=== PATIENT | female | born 1980 | race African-American/Black ===

== ENCOUNTER → 2017-09-12 | Outpatient (CLI) | payer OTHER ==
--- NOTE | 2017-09-16 07:39 | MM ---
Reason for exam: screening (asymptomatic). Last mammogram was performed 2 years and 8 months ago. History: Patient is postmenopausal. Family history of breast cancer in mother at age 42. Physical Findings: A clinical breast exam by your physician is recommended on an annual basis and results should be correlated with mammographic findings. MG 3D Screening Mammo W/Cad Bilateral CC and MLO view(s) were taken. Prior study comparison: January 14, 2015, bilateral MG screening mammo w CAD. There are scattered fibroglandular densities. No significant changes when compared with prior studies. ASSESSMENT: Negative, BI-RAD 1 RECOMMENDATION: Routine screening mammogram of both breasts at age 42.
== END | disposition home or self-care (01) ==
LOC: RADMAMWWP 07:36
PROVIDERS: ATTEND Family Medicine
DX: Z12.31 Encounter for screening mammogram for malignant neoplasm of breast (principal); Z80.3 Family history of malignant neoplasm of breast
CPT/HCPCS: 77063; 77067

== ENCOUNTER 2019-11-20 10:42 | Emergency (ER) | payer OTHER ==
[2019-11-20 10:56] VITALS: BP 148/89; PULSE 77; RESP 18; TEMP 98.3
[2019-11-20] MEDS ORDERED: MORPHINE SULFATE 4 MG/ML SYRINGE IM STA (11:10)
--- NOTE | 2019-11-20 11:30 | XR ---
Left foot and left ankle HISTORY: Trauma and pain 3 views of the left ankle and 3 views of the left foot are submitted Soft tissue swelling is present. Alignment, joint spaces, bone mineralization are maintained. IMPRESSION: No fracture or dislocation.
[2019-11-20] MEDS ORDERED: ACET/COD 300 MG/30 MG STARTER PACK 6 TAB BTL PO STA (11:38)
--- NOTE | 2019-11-20 11:38 | ED ---
Lower Extremity Injury HPI - General Chief Complaint: Extremity Injury, Lower Stated Complaint: Ankle injury Time Seen by Provider: 11/20/19 10:57 Source: patient, family, RN notes reviewed Mode of arrival: wheelchair Limitations: no limitations - History of Present Illness Initial Comments: 39-year-old female presents emergency from chief complaint left ankle pain. Patient states that she is walking her dog, tripped and fell twisting her left ankle. She has pain the lateral portion of left ankle and foot she has an abrasion to her right knee she states her tetanus is up-to-date. Denies any head injury no loss conscious. Patient offers no other complaints. - Related Data Previous Rx's Medication Instructions Recorded Acetaminophen-Codeine 300-30mg 2 tab PO Q6H PRN #20 tablet 11/26/14 [Tylenol #3] Allergies Allergy/AdvReac Type Severity Reaction Status Date / Time No Known Allergies Allergy Verified 11/24/14 08:49 Review of Systems ROS Statement: Those systems with pertinent positive or pertinent negative responses have been documented in the HPI. ROS Other: All systems not noted in ROS Statement are negative. Past Medical History Past Medical History: No Reported History History of Any Multi-Drug Resistant Organisms: None Reported Past Surgical History: Tubal Ligation, Uterine Ablation Past Psychological History: No Psychological Hx Reported Smoking Status: Never smoker Past Alcohol Use History: None Reported General Exam Limitations: no limitations General appearance: alert, in no apparent distress Head exam: Present: atraumatic, normocephalic, normal inspection Eye exam: Present: normal appearance, PERRL, EOMI. Absent: scleral icterus, conjunctival injection, periorbital swelling Respiratory exam: Present: normal lung sounds bilaterally. Absent: respiratory distress, wheezes, rales, rhonchi, stridor Cardiovascular Exam: Present: regular rate, normal rhythm, normal heart sounds. Absent: systolic murmur, diastolic murmur, rubs, gallop, clicks Extremities exam: Present: other (Left ankle there is mild swelling noted over the lateral malleoli region, tenderness palpation, tenderness the lateral portion of the foot neurovascular intact there is no proximal tib-fib tenderness. Abrasion noted the right knee with no tenderness full range of motion remaining extremity exam within normal limits.) Course Vital Signs 11/20/19 10:53 Temperature 98.3 F Pulse Rate 77 Respiratory 18 Rate Blood Pressure 148/89 O2 Sat by Pulse 100 Oximetry Medical Decision Making - Medical Decision Making X-rays reviewed of the left ankle and foot there are no acute fractures as read by radiologist. Patient was placed in a stirrup Aircast. Patient will follow- up with orthopedics if no improvement. Disposition Clinical Impression: Left ankle sprain, Sprain of left foot Disposition: HOME SELF-CARE Condition: Stable Instructions (If sedation given, give patient instructions): Ankle Sprain (ED), Foot Sprain (ED) Additional Instructions: Please return to the Emergency Department if symptoms worsen or any other concerns. Is patient prescribed a controlled substance at d/c from ED?: No Referrals: Andrea De La Cruz MD [Primary Care Provider] - 1-2 days Time of Disposition: 11:37
== END 2019-11-20 11:56 | disposition home or self-care (01) ==
LOC: EC 10:42
DX: S93.402A Sprain of unspecified ligament of left ankle, initial encounter (principal); S93.602A Unspecified sprain of left foot, initial encounter; S80.211A Abrasion, right knee, initial encounter; W01.0XXA Fall on same level from slipping, tripping and stumbling without subsequent striking against object, initial encounter; Y93.K1 Activity, walking an animal
CPT/HCPCS: 73610; 73630; 99283; 29515; 96372; L4350; J2270

== ENCOUNTER 2020-04-17 13:49 | Emergency (ER) | payer OTHER ==
[2020-04-17 13:58] VITALS: BP 148/65; PULSE 85; RESP 18; TEMP 98.9
[2020-04-17] MEDS ORDERED: BACITRACIN OINT 1 EACH PACKET TOPICAL ONE (14:25)
[2020-04-17] MEDS ORDERED: IBUPROFEN 600 MG STARTER PACK 4 TAB BTL PO STA (14:26)
[2020-04-17] MEDS ORDERED: ACET/COD 300 MG/30 MG STARTER PACK 6 TAB BTL PO STA (14:26)
--- NOTE | 2020-04-17 15:02 | ED ---
General Adult HPI - General Chief complaint: Burn/Smoke Inhalation Stated complaint: R Hand Burn Time Seen by Provider: 04/17/20 14:11 Source: patient, RN notes reviewed, old records reviewed Mode of arrival: ambulatory Limitations: no limitations - History of Present Illness Initial comments: 40-year-old female patient to ED for evaluation of burn to her left hand. Patient reports that she was cooking with grease when some grease splattered on the dorsal aspect of the second and third digits. Declined to update her tetanus. Denies any other acute complaints. Denies any chance of . Systemic: Pt denies fatigue, fever/chills, rash. Pt denies weakness, night sweats, weight loss. Neuro: Pt denies headache, visual disturbances, syncope or pre-syncope. HEENT: Pt denies ocular discharge or irritation, otalgia, rhinorrhea, pharyngitis or notable lymphadenopathy. Cardiopulmonary: Pt denies chest pain, SOB, heart palpitations, dyspnea on exertion. Abdominal/GI: Pt denies abdominal pain, n/v/d. : Pt denies dysuria, burning w/ urination, frequency/urgency. Denies new onset urinary or bowel incontinence. MSK: Pt denies myalgia, loss of strength or function in extremities. Neuro: Pt denies new onset weakness, paresthesias. - Related Data Previous Rx's Medication Instructions Recorded Acetaminophen-Codeine 300-30mg 2 tab PO Q6H PRN #20 tablet 11/26/14 [Tylenol #3] Bacitracin Zinc Oint 28.4 gm TOPICAL BID 7 Days #1 tube 04/17/20 Allergies Allergy/AdvReac Type Severity Reaction Status Date / Time No Known Allergies Allergy Verified 04/17/20 13:57 Review of Systems ROS Statement: Those systems with pertinent positive or pertinent negative responses have been documented in the HPI. ROS Other: All systems not noted in ROS Statement are negative. Past Medical History Past Medical History: No Reported History History of Any Multi-Drug Resistant Organisms: None Reported Past Surgical History: Tubal Ligation, Uterine Ablation Past Psychological History: No Psychological Hx Reported Smoking Status: Current some day smoker Past Alcohol Use History: None Reported Past Drug Use History: Marijuana General Exam - General Exam Comments Initial Comments: Constitutional: NAD, AOX3, Pt has pleasant affect. HEENT: NC/AT, trachea midline, neck supple, no lymphadenopathy. External ears ap pear normal, without discharge. Mucous membranes moist. Eyes PERRLA, EOM intact. There is no scleral icterus. No pallor noted. Cardiopulmonary: RRR, no murmurs, rubs or gallops, no JVD noted. Lungs CTAB in anterior and posterior monte. No peripheral edema. Abdominal exam: Abdomen soft and non-distended. Neuro: CN II-XII grossly intact. No nuchal rigidity. MSK: Very mild erythema to the dorsal aspect of the third and fourth digits. Very mild erythema to the dorsal aspect of the dorsum of the hand. Total size <4cm. No blistering. Sensation intact. Capillary refill <2 seconds. Blanching. Limitations: no limitations Course Vital Signs 04/17/20 13:55 Temperature 98.9 F Pulse Rate 85 Respiratory 18 Rate Blood Pressure 148/65 O2 Sat by Pulse 99 Oximetry Medical Decision Making - Medical Decision Making 40-year-old female patient to the ED for a first-degree burn from grease. There is no blistering sensation intact, burn does jose alejandro. Wound washed and ED with soap and water. Patient will be placed on bacitracin. Will follow up with primary care provider for wound recheck tomorrow. We'll keep wound clean and dry and covered. Will follow up with primary care provider tomorrow and return to ER with any worsening symptoms. Case discussed with Dr. Hercules. Disposition Clinical Impression: First degree burn Disposition: HOME SELF-CARE Condition: Stable Instructions (If sedation given, give patient instructions): Superficial Burn (ED) Additional Instructions: Follow up with PCP tomorrow for burn recheck. Keep area clean and dry, loosely covered with gauze. Use a thin layer of bacitracin twice per day on affected area until it heals. Return to ED with any worsening symptoms. Prescriptions: Bacitracin Zinc Oint 28.4 gm TOPICAL BID 7 Days #1 tube Is patient prescribed a controlled substance at d/c from ED?: No Referrals: Andrea De La Cruz MD [Primary Care Provider] - 1-2 days
== END 2020-04-17 15:14 | disposition home or self-care (01) ==
LOC: EC 13:49
DX: T23.131A Burn of first degree of multiple right fingers (nail), not including thumb, initial encounter (principal); T23.161A Burn of first degree of back of right hand, initial encounter; F17.200 Nicotine dependence, unspecified, uncomplicated; X10.2XXA Contact with fats and cooking oils, initial encounter; Y93.G3 Activity, cooking and baking; Y92.009 Unspecified place in unspecified non-institutional (private) residence as the place of occurrence of the external cause
CPT/HCPCS: 99283

== ENCOUNTER → 2022-09-10 | Outpatient (CLI) | payer OTHER ==
--- NOTE | 2022-09-10 19:35 | US ---
EXAMINATION TYPE: US thyroid st tissue head/neck DATE OF EXAM: 09/10/2022 COMPARISON: US 05/07/2012 CLINICAL HISTORY: E04.9 NONTOXIC GOITER, UNSPECIFIED. Enlarged thyroid. GLAND SIZE: Right Lobe: 6.8 x 4.6 x 2.8 cm Overall Parenchyma: Very heterogeneous. Left Lobe: 7.1 x 2.8 x 2.6 cm Overall Parenchyma: Very heterogeneous Isthmus Thickness: 0.49 cm NODULES RIGHT: # of nodules measured on right: 0 Unable to define any possible nodules due to heterogeneity of gland. LEFT: # of nodules measured on left: 0 Unable to define any possible nodules due to heterogeneity of gland. ISTHMUS: # of nodules measured in the isthmus: 0 Bilateral neck scanned, no evidence of lymphadenopathy. IMPRESSION: Glandular enlargement with diffuse heterogeneity without discrete nodule.
== END | disposition home or self-care (01) ==
LOC: RADUSWWP 15:51
PROVIDERS: ATTEND Family Medicine
DX: E04.9 Nontoxic goiter, unspecified (principal)
CPT/HCPCS: 76536

== ENCOUNTER → 2022-10-04 | Outpatient (CLI) | payer OTHER ==
--- NOTE | 2022-10-05 09:53 | NM ---
EXAMINATION TYPE: NM thyroid image w uptake DATE OF EXAM: 10/05/2022 COMPARISON: Prior nuclear medicine thyroid study 2011. Most recent ultrasound September 10, 2022 CLINICAL INDICATION: Female, 42 years old with history of E05.90 THYROTOXICOSIS, unspecified WITHOUT THYROTOXIC CRISIS; insomnia and palpitations per patient. TECHNIQUE: Thyroid iodine uptake is calculated and images performed after the oral administration of 294 uCi 1-123 Capsule. FINDINGS: There is normal distribution of activity throughout the prominent gland redemonstrated. Th e 4 hour iodine uptake is calculated at 84% , elevated from the normal range. The 24-hour iodine upta ke is calculated at 80% , elevated from the normal range. IMPRESSION: Increased uptake consistent with hyperthyroidism from diffuse hyperactive thyroid gland n ow present.
== END | disposition home or self-care (01) ==
LOC: RADNMMAIN 08:56
PROVIDERS: ATTEND Family Medicine
DX: E05.90 Thyrotoxicosis, unspecified without thyrotoxic crisis or storm (principal); E04.9 Nontoxic goiter, unspecified
CPT/HCPCS: 78014

== ENCOUNTER → 2022-10-05 | Outpatient (CLI) | payer OTHER ==
--- NOTE | 2022-10-05 15:38 | US ---
EXAMINATION TYPE: US pelvis complete transvag DATE OF EXAM: 10/05/2022 COMPARISON: OB US 07/13/14 CLINICAL INDICATION: Female, 42 years old with history of R10.2 PELVIC PAIN; Cramping. Hx ablation in 2014, hx 1 miscarriage, 2 abortions. . TECHNIQUE: Transvaginal (TV) and Transabdominal (TA) . Transabdominal sonographic images of the pel vis were acquired. Transvaginal sonographic images were medically necessary to better assess the fol lowing anatomy: Right ovary Date of LMP: Unknown, patient has had three episodes of bleeding this month. EXAM MEASUREMENTS: Uterus: 9.2 x 5.4 x 4.6 cm Endometrial Stripe: 0.67 cm Right Ovary: Obscured Left Ovary: 3.4 x 2.8 x 2.4 cm 1. Uterus: Anteverted Area of mixed echogenicity seen within posterior uterus: 1.7 x 1.9 x 2.1 cm. Anechoic area in cervix: 1.2 x 1.2 x 0.7 cm. 2. Endometrium: Measures 0.67 cm. Fluid was seen within endo: 1.5 x 0.5 x 0.6 cm. 3. Right Ovary: Obscured 4. Left Ovary: Complex area seen within: 1.9 x 1.8 x 2.2 cm. 5. Bilateral Adnexa: Appear wnl. 6. Posterior cul-de-sac: Free fluid seen within the CDS. Anteverted uterus. Endometrial stripe not suspiciously thickened. There is old full 1.9 cm hypoechoic lesion posterior myometrium felt to reflect intramural fibroid. Trace free fluid in the pelvis is no nspecific. A few nabothian cysts in the cervix are present. Right ovary not distinctly identified. Left ovary shows 1.9 cm peripheral nonsimple cyst, probable co rpus luteal cyst. IMPRESSION: No suspicious extraovarian adnexal masses. Possible new 2.0 cm intramural fibroid.
== END | disposition home or self-care (01) ==
LOC: RADUSWWP 13:46
PROVIDERS: ATTEND Family Medicine
DX: R10.2 Pelvic and perineal pain (principal); N94.6 Dysmenorrhea, unspecified
CPT/HCPCS: 76830; 76856

== ENCOUNTER 2023-08-20 18:43 | Observation (INO) | payer OTHER ==
--- NOTE | 2023-08-20 19:39 | ED ---
Headache HPI - General Chief Complaint: Headache Stated Complaint: Hypertension Time Seen by Provider: 08/20/23 19:06 Mode of arrival: ambulatory Limitations: no limitations - History of Present Illness Initial Comments: This is a 43-year-old female with history of hypertension and hypothyroidism presenting with chief complaint of headache and hypertension. Patient was seen by her PCP Dr. De La Cruz today for complaints of constipation, she was noted to have a severely elevated blood pressure and was complaining of a headache. He advised her to report to the ER. Patient states that this headache started "a few days ago" she is unsure when headache specifically started. It is located at the crown of her head and feels like a pulsing sensation. She has been dizzy since yesterday and had an episode of nausea and vomiting yesterday as well. She currently takes amlodipine 2.5 mg and hydrochlorothiazide 25 mg, states that she has been compliant with her dosing and has not missed or thrown up any medication. No chest pain, difficulty breathing, abdominal pain, vision or hearing changes, numbness, tingling, weakness. - Related Data Previous Rx's Medication Instructions Recorded Acetaminophen-Codeine 300-30mg 2 tab PO Q6H PRN #20 tablet 11/26/14 [Tylenol #3] Bacitracin Zinc Oint 28.4 gm TOPICAL BID 7 Days #1 tube 04/17/20 Allergies Allergy/AdvReac Type Severity Reaction Status Date / Time No Known Allergies Allergy Verified 01/31/22 14:21 Review of Systems ROS Statement: Those systems with pertinent positive or pertinent negative responses have been documented in the HPI. ROS Other: All systems not noted in ROS Statement are negative. Past Medical History Past Medical History: Hypertension, Thyroid Disorder History of Any Multi-Drug Resistant Organisms: None Reported Past Surgical History: Tubal Ligation, Uterine Ablation Past Psychological History: No Psychological Hx Reported Smoking Status: Current some day smoker Past Alcohol Use History: None Reported Past Drug Use History: Marijuana General Exam Limitations: no limitations General appearance: alert, in no apparent distress Head exam: Present: atraumatic, normocephalic Eye exam: Present: normal appearance, PERRL, EOMI, nystagmus Neck exam: Present: normal inspection, full ROM Respiratory exam: Present: normal lung sounds bilaterally. Absent: respiratory distress, wheezes, rales, rhonchi, stridor Cardiovascular Exam: Present: regular rate, normal rhythm, normal heart sounds. Absent: systolic murmur, diastolic murmur, rubs, gallop, clicks Extremities exam: Absent: pedal edema Neurological exam: Present: alert, oriented X3 Expanded Patient oriented to: Present: person, place, time Speech: Present: fluid speech Cerebellar function: Finger to Nose: Normal, Heel to Sousa: Normal Eye Response: (4) open spontaneously Motor Response: (6) obeys commands Verbal Response: (5) oriented [place] Total: 15 Psychiatric exam: Present: normal affect, normal mood Skin exam: Present: warm, dry Course Vital Signs 08/20/23 08/20/23 08/20/23 18:45 19:14 20:00 Temperature 98.2 F Pulse Rate 110 H 111 H Respiratory 20 18 21 Rate Blood Pressure 192/123 176/85 170/74 O2 Sat by Pulse 100 98 Oximetry 08/20/23 22:24 Temperature Pulse Rate 89 Respiratory 18 Rate Blood Pressure 140/73 O2 Sat by Pulse 100 Oximetry Medical Decision Making - Medical Decision Making Was pt. sent in by a medical professional or institution (, PA, SNOUT PULLER, urgent care, hospital, or jail...) When possible be specific @ -Sent by PCP Dr. De La Cruz Did you speak to anyone other than the patient for history (EMS, parent, family, police, friend...)? What history was obtained from this source @ -No Did you review nursing and triage notes (agree or disagree)? Why? @ -I reviewed and agree with nursing and triage notes Were old charts reviewed (outside hosp., previous admission, EMS record, old EKG, old radiological studies, urgent care reports/EKG's, jail records)? Report findings @ -No old charts were reviewed Differential Diagnosis (chest pain, altered mental status, abdominal pain women, abdominal pain men, vaginal bleeding, weakness, fever, dyspnea, syncope, headache, dizziness, GI bleed, back pain, seizure, CVA, palpatations, mental health, musculoskeletal)? @ -[facility] Differential Headache: Migraine, tension, cluster, carbon monoxide, central venous thrombosis, pension karma temporal arteritis, acute closure glaucoma, intercranial hemorrhage, mastoiditis, sinusitis, head injury this is not meant to be an all-inclusive list. EKG interpreted by me (3pts min.). @ -EKG shows sinus tachycardia ventricular rate 102. [place] interval 138. QRS 74. QT 379. QTc 438. X-rays interpreted by me (1pt min.). @ -None done CT interpreted by me (1pt min.). @ -CT brain without contrast shows no evidence of acute intracranial hemorrhage, midline shift, or mass effect. Basal cisterns are patent. Ventricles are normal in size and position. Patent CTA head. No evidence of major vascular occlusion, high-grade stenosis or intracranial aneurysm U/S interpreted by me (1pt. min.). @ -None done What testing was considered but not performed or refused? (CT, X-rays, U/S, labs)? Why? @ -None What meds were considered but not given or refused? Why? @ -None Did you discuss the management of the patient with other professionals (professionals i.e. , PA, SNOUT PULLER, lab, RT, psych nurse, social media marketer, celluloid trimmer, teacher, systems support officer, manager case)? Give summary @ -Spoke with who accepted admission Was smoking cessation discussed for >3mins.? @ -No Was critical care preformed (if so, how long)? @ -No Were there social determinants of health that impacted care today? How? (Homelessness, low income, unemployed, alcoholism, drug addiction, transportation, low edu. Level, literacy, decrease access to med. care, group home, rehab)? @ -No Was there de-escalation of care discussed even if they declined (Discuss DNR or withdrawal of care, Hospice)? DNR status @ -No What co-morbidities impacted this encounter? (DM, HTN, Smoking, COPD, CAD, Cancer, CVA, ARF, Chemo, Hep., AIDS, mental health diagnosis, sleep apnea, morbid obesity)? @ -Hypertension Was patient admitted / discharged? Hospital course, mention meds given and route, prescriptions, significant lab abnormalities, going to OR and other pertinent info. @ -43-year-old female sent in by her PCP for chief complaint of elevated blood pressure and headache. She has also been having dizziness nausea and vomiting. History and physical exam are conducted. Potassium is 3.1, she is receiving IV replacement. Negative CT brain without and CTA. EKG shows no acute finding and negative troponin. After fluids, pain medication, and meclizine patient is st ill complaining of a headache and dizziness. She will be admitted for observation. She is agreeable with this plan. I discussed case my attending Dr. Coburn Undiagnosed new problem with uncertain prognosis? @ -No Drug Therapy requiring intensive monitoring for toxicity (Heparin, Nitro, Insuli n, Cardizem)? @ -No Were any procedures done? @ -No Diagnosis/symptom? @ -Dizziness, headache Acute, or Chronic, or Acute on Chronic? @ -Acute Uncomplicated (without systemic symptoms) or Complicated (systemic symptoms)? @ -Complicated Side effects of treatment? @ -No Exacerbation, Progression, or Severe Exacerbation? @ -No Poses a threat to life or bodily function? How? (Chest pain, [place], [place], pneumonia, PE, COPD, DKA, ARF, appy, cholecystitis, CVA, Diverticulitis, Homicidal, Suicidal, threat to staff... and all critical care pts) @ -yes - Lab Data Result diagrams: 08/20/23 20:20 08/20/23 20:20 Lab Results 08/20/23 08/20/23 08/20/23 Range/Units 20:20 20:20 20:20 WBC 9.6 (3.8-10.6) k/uL RBC 5.34 (3.80-5.40) m/uL Hgb 13.5 (11.4-16.0) gm/dL Hct 42.0 (34.0-46.0) % MCV 78.6 L (80.0-100.0) fL MCH 25.2 (25.0-35.0) pg MCHC 32.1 (31.0-37.0) g/dL RDW 13.7 (11.5-15.5) % Plt Count 300 (150-450) k/uL MPV 8.5 Neutrophils % 67 % Lymphocytes % 25 % Monocytes % 5 % Eosinophils % 1 % Basophils % 0 % Neutrophils # 6.4 (1.3-7.7) k/uL Lymphocytes # 2.4 (1.0-4.8) k/uL Monocytes # 0.5 (0-1.0) k/uL Eosinophils # 0.1 (0-0.7) k/uL Basophils # 0.0 (0-0.2) k/uL PT 10.7 (10.0-12.5) sec INR 1.0 (<1.2) APTT 22.4 (22.0-30.0) sec Sodium 136 L (137-145) mmol/L Potassium 3.1 L (3.5-5.1) mmol/L Chloride 93 L (98-107) mmol/L Carbon Dioxide 30 (22-30) mmol/L Anion Gap 13 mmol/L BUN 13 (7-17) mg/dL Creatinine 0.48 L (0.52-1.04) mg/dL Est GFR (CKD-EPI)AfAm >90 (>60 ml/min/1.73 sqM) Est GFR (CKD-EPI)NonAf >90 (>60 ml/min/1.73 sqM) Glucose 106 H (74-99) mg/dL Calcium 9.7 (8.4-10.2) mg/dL Total Bilirubin 0.7 (0.2-1.3) mg/dL AST 25 (14-36) U/L ALT 29 (4-34) U/L Alkaline Phosphatase 113 (38-126) U/L Troponin I (0.000-0.034) ng/mL Total Protein 8.2 (6.3-8.2) g/dL Albumin 4.4 (3.5-5.0) g/dL HCG, Qual Not Detected 08/20/23 Range/Units 20:20 WBC (3.8-10.6) k/uL RBC (3.80-5.40) m/uL Hgb (11.4-16.0) gm/dL Hct (34.0-46.0) % MCV (80.0-100.0) fL MCH (25.0-35.0) pg MCHC (31.0-37.0) g/dL RDW (11.5-15.5) % Plt Count (150-450) k/uL MPV Neutrophils % % Lymphocytes % % Monocytes % % Eosinophils % % Basophils % % Neutrophils # (1.3-7.7) k/uL Lymphocytes # (1.0-4.8) k/uL Monocytes # (0-1.0) k/uL Eosinophils # (0-0.7) k/uL Basophils # (0-0.2) k/uL PT (10.0-12.5) sec INR (<1.2) APTT (22.0-30.0) sec Sodium (137-145) mmol/L Potassium (3.5-5.1) mmol/L Chloride (98-107) mmol/L Carbon Dioxide (22-30) mmol/L Anion Gap mmol/L BUN (7-17) mg/dL Creatinine (0.52-1.04) mg/dL Est GFR (CKD-EPI)AfAm (>60 ml/min/1.73 sqM) Est GFR (CKD-EPI)NonAf (>60 ml/min/1.73 sqM) Glucose (74-99) mg/dL Calcium (8.4-10.2) mg/dL Total Bilirubin (0.2-1.3) mg/dL AST (14-36) U/L ALT (4-34) U/L Alkaline Phosphatase (38-126) U/L Troponin I <0.012 (0.000-0.034) ng/mL Total Protein (6.3-8.2) g/dL Albumin (3.5-5.0) g/dL HCG, Qual Disposition Clinical Impression: Headache, Vertigo Disposition: ADMITTED IP TO THIS HOSP Condition: Fair Referrals: Andrea De La Cruz MD [Primary Care Provider] - 1-2 days Time of Disposition: 23:25
[2023-08-20] MEDS: SODIUM CHLORIDE 0.9% 1,000 ML IV STA (20:14)
[2023-08-20] MEDS: amLODIPine 5 MG TAB PO STA (20:14)
[2023-08-20 20:39] LABS: Basophils % (A) 0 %; Eosinophils # (A) 0.1 k/uL (0-0.7); Eosinophils % (A) 1 %; HGB 13.5 gm/dL (11.4-16.0); Lymphocytes # (A) 2.4 k/uL (1.0-4.8); Lymphocytes % (A) 25 %; MCH 25.2 pg (25.0-35.0); MCHC 32.1 g/dL (31.0-37.0); MCV 78.6 fL (80.0-100.0); Mean Platelet Volume 8.5; Monocytes # (A) 0.5 k/uL (0-1.0); Monocytes % (A) 5 %; Neutrophils # (A) 6.4 k/uL (1.3-7.7); Neutrophils % (A) 67 %; Platelet Count 300 k/uL (150-450); RBC 5.34 m/uL (3.80-5.40); RDW 13.7 % (11.5-15.5); WBC 9.6 k/uL (3.8-10.6)
[2023-08-20 20:55] LABS: ALT 29 U/L (4-34); AST 25 U/L (14-36); African American GFR (CKD) >90 (>60 ml/min/1.73 sqM); Albumin 4.4 g/dL (3.5-5.0); Alkaline Phosphatase 113 U/L (38-126); Anion Gap 13 mmol/L; Blood Urea Nitrogen 13 mg/dL (7-17); Calcium 9.7 mg/dL (8.4-10.2); Carbon Dioxide 30 mmol/L (22-30); Chloride 93 mmol/L (98-107); Glucose 106 mg/dL (74-99); Non-African American GFR(CKD) >90 (>60 ml/min/1.73 sqM); Potassium 3.1 mmol/L (3.5-5.1); Sodium 136 mmol/L (137-145); Total Bilirubin 0.7 mg/dL (0.2-1.3); Total Protein 8.2 g/dL (6.3-8.2)
[2023-08-20 21:07] LABS: HCG,Qualitative Serum Not Detected
[2023-08-20 21:12] LABS: Partial Thromboplastin Time 22.4 sec (22.0-30.0); Prothrombin Time 10.7 sec (10.0-12.5)
[2023-08-20] MEDS: ONDANSETRON 4 MG/2 ML VIAL IVP STA (21:21)
[2023-08-20] MEDS ORDERED: Potassium Replacement Protocol 1 EACH MISC MISCELLANE PRN (21:40)
[2023-08-20] MEDS ORDERED: MECLIZINE 12.5 MG TAB PO STA (21:57)
--- NOTE | 2023-08-20 21:57 | CT ---
EXAMINATION TYPE: CT angio head CT DLP: 1891.9 mGycm, Automated exposure control for dose reduction was used. DATE OF EXAM: 08/20/2023 8:46 PM COMPARISON: None. CLINICAL INDICATION:Female, 43 years old with history of headache, +N/V and dizziness; PHH, headache, N/V, severe dizziness x 3 days. TECHNIQUE: CT head without contrast was performed first with multiplanar reformats. Axially acquired helical CT angiogram of the head and neck was then obtained with contrast utilizing 75 cc of Isovue-3 70 administered intravenously. Axial images are supplemented with 3D reconstructions which were post- processed at an independent workstation. NASCET criteria used. FINDINGS: No evidence of acute intracranial hemorrhage, midline shift, or mass effect. Basal cisterns are patent. Ventricles are normal in size and position. No significant atrophic changes or definite white matter abnormality. There is no loss of aust[place]-white matter distinction seen to suggest acute territorial infarct. No soft tissue abnormality is seen. Orbits are unremarkable. No evidence of acute calvarial abnormality. Minimal paranasal sinus mucosal thickening. Small mucous retention cyst or polyp in the left maxillary. Mastoid air cells are clear. There is material in the external auditory canals, likely cerumen. Vertebral arteries: The visualized vertebral arteries are patent. Vertebral artery dominance: Codominant Basilar artery: Basilar artery is normally patent. Basilar bifurcation is normal. Patent bilateral pr oximal recovery agent are seen. There is a patent posterior communicating artery seen on the left. Proximal intracranial ICAs are pat ent. Carotid termini are normal. Bilateral patent MCAs, ACAs, and anterior communicating artery. No e vidence of major vascular occlusion, high-grade stenosis, sizable aneurysm, or AV malformation in the limits of CTA. Dural venous sinuses appear to be normally enhancing without suggestion of thrombosis. The right payne sverse sinus is dominant. IMPRESSION: Patent CTA Head. No evidence of major vascular occlusion, high-grade stenosis or intracranial aneurys m.
[2023-08-20] MEDS ORDERED: POTASSIUM CHLORIDE ER 20 MEQ TAB.ER PO SCH (22:00)
[2023-08-20] MEDS: POTASSIUM CHLORIDE 10 MEQ in WATER FOR INJECTION 1 100ML.BAG IVPB SCH (22:14)
[2023-08-20] MEDS: MECLIZINE 25 MG TAB PO STA (22:14)
[2023-08-20] MEDS: KETOROLAC 15 MG/ML 1 ML VIAL IVP STA (22:14)
[2023-08-20] MEDS ORDERED: IBUPROFEN 400 MG TAB PO PRN (23:25)
[2023-08-20] MEDS ORDERED: KETOROLAC 15 MG/ML 1 ML VIAL IVP PRN (23:25)
[2023-08-20] MEDS ORDERED: ACETAMINOPHEN TAB 325 MG TAB PO PRN (23:25)
[2023-08-20] MEDS ORDERED: ONDANSETRON 4 MG/2 ML VIAL IVP PRN (23:25)
[2023-08-20] MEDS ORDERED: NALOXONE 0.4 MG/ML 1 ML VIAL IV PRN (23:25)
[2023-08-20] MEDS: ACETAMINOPHEN TAB 325 MG TAB PO STA (23:39)
[2023-08-20] MEDS: MORPHINE SULFATE 4 MG/ML SYRINGE IVP STA (23:47)
[2023-08-21] MEDS: MORPHINE SULFATE 4 MG/ML SYRINGE IV PRN (03:17)
[2023-08-21] MEDS ORDERED: ONDANSETRON ODT 4 MG TAB PO PRN (15:36)
[2023-08-21] MEDS: MECLIZINE 12.5 MG TAB PO PRN (16:47)
[2023-08-21] MEDS: methIMAzole 5 MG TAB PO SCH (16:47)
[2023-08-21] MEDS: POTASSIUM CHLORIDE ER 20 MEQ TAB.ER PO SCH (20:39)
--- NOTE | 2023-08-21 22:07 | PN ---
PROGRESS NOTE DATE OF SERVICE: 08/21/2023 CHIEF COMPLAINT: Labile hypertension, headache, and dizziness. HISTORY OF PRESENT ILLNESS: This lady is doing fairly well, but she still has an occipital headache and she is still quite dizzy. Her potassium was low and this will be corrected. PHYSICAL EXAMINATION: HEAD, EARS, EYES, NOSE, MOUTH AND THROAT: Normal. NECK: Supple. CHEST: Clear. CARDIAC: Normal. ABDOMEN: Soft, nontender. IMPRESSION: 1. Labile hypertension. 2. Hypokalemia. 3. Graves disease. PLAN: 1. Antivert. 2. Continue to monitor her symptoms and blood pressure. MMODL / IJN: [id number] /
--- NOTE | 2023-08-22 03:04 | HP ---
HISTORY AND PHYSICAL CHIEF COMPLAINT: Headache and hypertension. HISTORY OF PRESENT ILLNESS: This is another admission for this 43-year-old . She does have a history of Graves disease, which has been fairly well controlled with her methimazole. She is also being treated for hypertension. She came into the office on the day of admission complaining of headache and dizziness and the blood pressure was markedly elevated at around 190/110. She was complaining of occipital headache and dizziness. It was decided that we would try to treat her as an outpatient and additional medications was added including Apresoline, and Cozaar. However, when she got to the pharmacy, they told her that these would be ready until tomorrow (!). She then came to emergency room. In the emergency room, her blood pressure was initially elevated and then dropped down to 140/70. It was felt that she might be able to be discharged, but she was still having a significant headache and dizziness and it was decided to admit her. Her CT was negative. REVIEW OF SYSTEMS: Otherwise normal except for the headache and dizziness. She has had no visual changes or chest pain. Past medical history, family history, and personal and social histories are all otherwise unchanged, unremarkable, and noncontributory. PHYSICAL EXAMINATION: VITAL SIGNS: Blood pressure 140/70 and pulse is 80. GENERAL: She appeared to be in no acute distress. SKIN: Dry. HEAD, EARS, EYES, NOSE, MOUTH, AND THROAT: Normal. NECK: Supple. CHEST: Clear. CARDIAC: Normal sinus rhythm. ABDOMEN: Soft and protuberant. EXTREMITIES: Normal. NEUROLOGICAL: She is intact. ASSESSMENT: She is admitted to the hospital with diagnoses of: 1. Labile hypertension with headache and dizziness. 2. Graves disease. PLAN: 1. Bed rest. 2. Frequent monitoring of her blood pressure, other vital signs, headache, dizziness. 3. Free T4. MMODL / IJN: [id number] /
[2023-08-22 08:15] VITALS: RESP 16
[2023-08-22] MEDS: amLODIPine 2.5 MG TAB PO SCH (08:31)
--- NOTE | 2023-08-22 13:34 | PN ---
PROGRESS NOTE DATE OF SERVICE: 08/22/2023 CHIEF COMPLAINT: Headache, dizziness, and hypertension. HISTORY OF PRESENT ILLNESS: This lady's blood pressure is good. However, she still has headache and dizziness. She has no focal neurologic issues or change in vision. PHYSICAL EXAMINATION: CHEST: Clear. CARDIAC: Normal. ABDOMEN: Soft, nontender. IMPRESSION: 1. Uncontrolled hypertension. 2. Headache. 3. Dizziness. 4. Graves disease. 5. Hypokalemia. PLAN: 1. Repeat potassium. 2. Continue to monitor her vital signs and her symptoms. She can go home once her dizziness and headache subside. MMODL / IJN: [id number] /
[2023-08-23 08:34] VITALS: BP 137/82; PULSE 82; TEMP 98.6
--- NOTE | 2023-08-23 19:46 | DS ---
DISCHARGE SUMMARY CHIEF COMPLAINT: Labile hypertension, headache, dizziness, and Graves disease. HISTORY OF PRESENT ILLNESS AND PHYSICAL EXAMINATION: Details of this lady's history and physical can be found in the initial workup. LABORATORY STUDIES: While she is in the hospital, she had laboratory studies, details of which can be found in the laboratory section of her chart. COURSE IN THE HOSPITAL: After admission, she was placed on bedrest, started intravenous fluids and frequent monitoring of her vital signs. Blood pressure remained under good control. She continued to have fairly severe occipital headaches and dizziness without any visual changes, neurologic issues or deficits, etc. The dizziness disappeared and her headache was still present, but it was felt that she could be discharged. Blood pressure was quite normal and her potassium had been brought up to normal. She will go home on her usual activity, the same medications that she has been on, regular diet, and she will be seen in the office in several days. FINAL DIAGNOSES: 1. Labile hypertension. 2. Headache. 3. Vertigo. 4. Graves disease. 5. Hypokalemia. OPERATIONS: None. CONSULTATIONS: None. She is improved. MMODL / IJN: [id number] /
--- NOTE | 2023-08-25 23:49 | PN ---
PROGRESS NOTE DATE OF SERVICE: 08/22/2023 CHIEF COMPLAINT: Headache, dizziness, uncontrolled hypertension, and Graves disease. HISTORY OF PRESENT ILLNESS: This lady is doing a little better. Her vital signs remained normal. Blood pressure has been normal. Headache is subsiding. She still is quite dizzy. PHYSICAL EXAMINATION: VITAL SIGNS: Normal. CHEST: Clear. CARDIAC: Normal. ABDOMEN: Soft, nontender. NECK: Supple. IMPRESSION: 1. Uncontrolled labile hypertension. 2. Headache. 3. Dizziness. 4. Graves disease. PLAN: Increase activity and monitor her headache. If nothing further develops, she can probably go home in the next day or 2. MMODL / IJN: [id number] /
--- NOTE | 2023-08-25 23:55 | DS ---
DISCHARGE SUMMARY CHIEF COMPLAINT: Labile hypertension, headache, and dizziness. HISTORY OF PRESENT ILLNESS AND PHYSICAL EXAM: Found in the initial workup. LABORATORY STUDIES: While she was in the hospital, she had laboratory studies, details of which can be found in the laboratory section of her chart. COURSE IN THE HOSPITAL: After admission, she was placed on bedrest, started on intravenous fluids, and blood pressures closely monitored and it remains normal, even though it had been excessively high before she came in. Headache continued and dizziness slowly subsided. She was stable and felt that it was safe for her to go home on the and she will be seen in the office in several days. She will go home on her usual medications without any changes under antihypertensives. FINAL DIAGNOSES: 1. Hypertensive urgency. 2. Labile hypertension. 3. Headache. 4. Dizziness. 5. Graves disease. OPERATIONS: None. CONSULTATIONS: None. She is improved. MMODL / MELYN: [id number] /
== END 2023-08-23 14:42 | disposition home or self-care (01) ==
LOC: EC 18:43 → 6NMEDSUR 23:26
PROVIDERS: ADMIT Family Medicine; ATTEND Family Medicine
DX: I10 Essential (primary) hypertension (principal); E87.6 Hypokalemia; E05.00 Thyrotoxicosis with diffuse goiter without thyrotoxic crisis or storm; K59.00 Constipation, unspecified; F17.200 Nicotine dependence, unspecified, uncomplicated; Z79.899 Other long term (current) drug therapy
CPT/HCPCS: 96376 ×3; 96366; 96361; 96365; 96375; 99285; 36415; 93005; 84439; 80053; 84132; 84484; 85025; 85610; 85730; 84703; 70496; G0378 ×4; J2270 ×4; J2405; J3480 ×2; J1885; Q9967

== ENCOUNTER → 2023-09-19 | Outpatient (CLI) | payer OTHER ==
[2023-09-19 13:41] VITALS: BP 136/58; PULSE 81; TEMP 97.9; BMI 36.6
--- NOTE | 2023-09-19 15:25 | P.HPBAR ---
Bariatric H&P - History & Physicial H&P Date: 09/19/23 History & Physicial: Visit/CC: new patient Patient initial contact: Initial weight: Initial weight in pounds: Height: 5 ft 2 in Initial BMI: Last weight: Current weight: 90.764 kg Current weight in pounds: 200.10 Current BMI: 36.6 [place] body weight (based on NIH guidelines): 49.895 kg Excess body weight loss: The patient is a 43 year-old F who presents for Bariatric Assessment. 43-year-old female presents for evaluation regarding obesity. Patient with BMI today of 36.6. Patient states her weight fluctuates from 200-2 60. She is currently on Adipex and Wegovy. She would like to try to get off of these medications. Patient suffers from hypertension. She also is hypothyroid. She is seeing a business analytics faculty member on October 10. She is on methimazole currently. Previous smoker quit in 2008. No GERD, no DVT, no dysphagia. No known hernias. Review of Systems The patient denies any acute changes in vision or hearing, no dysphagia or odynophagia, no chest pain or shortness of breath, no dysuria or hematuria, no headache, no runny nose, no rectal bleeding or melena, no unexplained weight loss Past Medical History Past Medical History: Hypertension, Pneumonia, Thyroid Disorder Additional Past Medical History / Comment(s): hyperthyroid, gestational diabetes History of Any Multi-Drug Resistant Organisms: None Reported Past Surgical History: Tubal Ligation, Uterine Ablation Additional Past Anesthesia/Blood Transfusion Reaction / Comm: pt. reports dizziness and "hard to wake up" after tubal Past Psychological History: No Psychological Hx Reported Smoking Status: Former smoker Past Alcohol Use History: Occasional Additional Past Alcohol Use History / Comment(s): quit smoking 2008 Past Drug Use History: None Reported Surgical - Exam Vital Signs Temp Pulse BP 97.9 F 81 136/58 09/19/23 13:35 09/19/23 13:35 09/19/23 13:35 Physical exam: General: Well-developed, well-nourished HEENT: Normocephalic, sclerae nonicteric Abdomen: Nontender, nondistended Extremities: No edema Neuro: Alert and oriented Bariatric Assessment & Plan (1) Severe obesity (BMI 35.0-35.9 with comorbidity) Narrative/Plan: 43-year-old female with severe obesity. BMI today 36.6. Patient has comorbidity including hypertension. Patient is interested in sleeve gastrectomy. She and I discussed the options of the available common surgical weight loss procedures. Risks and benefits as long as average weight loss was discussed today. Discussed that we would like to see medical clearance from endocrinology given her history of hyperthyroidism. Will plan after we see some documentation from them preoperative EGD. Status: Acute Bariatric Checklist Checklist: Plan: Checklist: EGD: 1. Hiatal hernia: 2. H. Pylori: HgbA1c: Vitamin D: Smoking: Never smoker Primary care physician referral: Dr. De La Cruz Psychiatry clearance: Cardiology clearance: Sleep study: Diet journal: VTE risk score: VTE risk level: Rehab needs at discharge:
== END ==
LOC: BARWHC3 13:17
PROVIDERS: ATTEND Surgery
DX: E66.9 Obesity, unspecified (principal); I10 Essential (primary) hypertension; Z68.35 Body mass index [BMI] 35.0-35.9, adult; Z87.891 Personal history of nicotine dependence
CPT/HCPCS: 99212

== ENCOUNTER → 2023-11-13 | Outpatient (CLI) | payer OTHER ==
[2023-11-13 17:23] LABS: T4, Free (Free Thyroxine) 0.92 ng/dL (0.80-1.80)
== END | disposition home or self-care (01) ==
LOC: LABWHC1 11:09
PROVIDERS: ATTEND Internal Medicine
DX: E05.00 Thyrotoxicosis with diffuse goiter without thyrotoxic crisis or storm (principal)
CPT/HCPCS: 36415; 84439; 84443; 84480

== ENCOUNTER 2023-11-26 12:44 | Day surgery (SDC) | payer OTHER ==
[2023-11-20 11:15] VITALS: BMI 36.7
[2023-11-26 13:09] VITALS: RESP 16; TEMP 97.7
[2023-11-26] MEDS: IV FLUID CONTINUATION 1,000 ML IV ONE (13:16)
[2023-11-26] MEDS: LACTATED RINGERS 1,000 ML IV SCH (13:16)
[2023-11-26] MEDS ORDERED: PROPOFOL 10 MG/ML 20 ML VIAL IV ONE (13:29)
--- NOTE | 2023-11-26 13:37 | P.GSHP ---
History of Present Illness H&P Date: 11/26/23 Chief Complaint: GERD 43-year-old female here for EGD. Mild reflux symptoms at time. Patient being evaluated for possible weight loss surgery. Past Medical History Past Medical History: Hypertension, Pneumonia, Thyroid Disorder Additional Past Medical History / Comment(s): hyperthyroid, gestational diabetes History of Any Multi-Drug Resistant Organisms: None Reported Past Surgical History: Tubal Ligation, Uterine Ablation Additional Past Anesthesia/Blood Transfusion Reaction / Comment(s): pt. reports dizziness and "hard to wake up" after tubal Smoking Status: Former smoker - Past Family History Mother Family Medical History: Cancer Additional Family Medical History / Comment(s): breast Medications and Allergies Home Medications Medication Instructions Recorded Confirmed Type Albuterol Sulfate [Ventolin HFA] 1 - 2 puff INHALATION RT-QID PRN 08/21/23 11/20/23 History Semaglutide [Wegovy] 2.4 mg SQ SA 08/21/23 11/20/23 History amLODIPine [Norvasc] 10 mg PO DAILY 08/21/23 11/20/23 History methIMAzole 20 mg PO DAILY 08/21/23 11/20/23 History Metoprolol Succinate (ER) [Toprol 25 mg PO HS 09/19/23 11/20/23 History Xl] Phentermine HCl [Adipex-P] 37.5 mg PO DAILY 09/19/23 11/20/23 History hydroCHLOROthiazide 25 mg PO DAILY 09/19/23 11/20/23 History Allergies Allergy/AdvReac Type Severity Reaction Status Date / Time No Known Allergies Allergy Verified 11/26/23 13:00 Surgical - Exam Vital Signs Temp Pulse Resp BP Pulse Ox 97.7 F 67 16 156/72 100 11/26/23 13:07 11/26/23 13:07 11/26/23 13:07 11/26/23 13:07 11/26/23 13:07 Physical exam: General: Well-developed, well-nourished HEENT: Normocephalic, sclerae nonicteric Abdomen: Nontender, nondistended Extremities: No edema Neuro: Alert and oriented Assessment and Plan (1) GERD (gastroesophageal reflux disease) Narrative/Plan: Will proceed with EGD at this time. Current Visit: Yes Status: Acute Code(s): K21.9 - GASTRO-ESOPHAGEAL REFLUX DISEASE WITHOUT ESOPHAGITIS SNOMED Code(s): 313671078
--- NOTE | 2023-11-26 13:44 | P.PCN ---
Date of Procedure: 11/26/23 Procedure(s) Performed: Preoperative Dx: GERD, presurgical Postoperative Dx: Mild gastritis Procedure: EGD with Bx Anesthesia: Sedation Endoscopist: Dr. Haque Specimens: Antrum Endoscopic Procedure: The patient was on the endoscopy table in the left decubitus position. The Olympus gastroscope was inserted into the oropharynx and passed under direct visualization to the region of the third portion of the duodenum. From that point the scope was slowly withdrawn inspecting all surfaces carefully. There were no neoplastic inflammatory or polypoid lesions throughout the duodenum. The pylorus was widely patent. The stomach was carefully inspected. There was mild gastritis present. A biopsy of the antrum took place to rule out H. pylori. Retroflexion revealed a normal hiatus. The esophagus was then carefully examined. There were no neoplastic inflammatory or polypoid lesions throughout the visualized esophagus. The patient was then taken to the recovery room in stable condition per anesthesia guidelines. Recommendations: Resume diet. Await biopsy results. Continue preoperative sleeve workup.
[2023-11-26 13:49] VITALS: BP 103/66; PULSE 74
== END 2023-11-26 14:26 | disposition home or self-care (01) ==
LOC: ORWHC2ENDO 12:44
PROVIDERS: ATTEND Surgery
DX: K29.50 Unspecified chronic gastritis without bleeding (principal); K21.00 Gastro-esophageal reflux disease with esophagitis, without bleeding; I10 Essential (primary) hypertension; E07.9 Disorder of thyroid, unspecified; Z87.891 Personal history of nicotine dependence; Z98.51 Tubal ligation status; Z79.890 Hormone replacement therapy; Z79.899 Other long term (current) drug therapy
CPT/HCPCS: 81025; 88305; 43239; J2704

== ENCOUNTER → 2023-12-17 | Outpatient (CLI) | payer OTHER ==
[2023-12-17 15:13] VITALS: BP 138/84; PULSE 71; RESP 16; TEMP 98.2; BMI 37.5
--- NOTE | 2023-12-17 16:22 | P.BASOAP ---
Subjective Progress Note Date: 12/17/23 Principal diagnosis: Morbid obesity Patient return [facility] for preoperative assessment. Had recent EGD showing mild gastritis. No changes to her prior history and physical. Objective - Vital Signs Vital signs: Vital Signs Temp 98.2 F 12/17/23 15:11 Pulse 71 12/17/23 15:11 Resp 16 12/17/23 15:11 BP 138/84 12/17/23 15:11 Pulse Ox FiO2 Intake & Output 12/16/23 12/17/23 12/17/23 18:59 06:59 18:59 Weight 92.986 kg - Exam Abdomen: Soft, nontender, nondistended Assessment/Plan (1) Severe obesity (BMI 35.0-35.9 with comorbidity) Narrative/Plan: 43-year-old female with severe obesity. Patient remains interested in sleeve gastrectomy. Surgical consent form reviewed in detail. The risks of bleeding, infection, stenosis, stricture, leak, abscess, fistula formation, peritonitis, poor weight loss, reflux, vomiting, conversion to an open procedure, aborting sleeve gastrectomy, SD, PE, DVT, and were discussed. The patient understands and wishes to proceed. Plan: Date: 12/17/23 Initial Weight: 92.986 kg Initial BMI: 37.5 Current Weight: 92.986 kg Current BMI: 37.5 Type of Surgery: Vertical Sleeve Gastrectomy Total Volume in Band: Previous Volume: Volume Removed: Volume Added: Band Size:
== END ==
LOC: BARWHC3 14:47
PROVIDERS: ATTEND Surgery
DX: E66.9 Obesity, unspecified (principal); K29.70 Gastritis, unspecified, without bleeding; Z90.3 Acquired absence of stomach [part of]; Z68.35 Body mass index [BMI] 35.0-35.9, adult
CPT/HCPCS: 99211

== ENCOUNTER → 2024-01-07 | Outpatient (CLI) | payer OTHER ==
[2024-01-07 18:31] LABS: T4, Free (Free Thyroxine) 0.92 ng/dL (0.80-1.80)
== END | disposition home or self-care (01) ==
LOC: LABWHC1 13:32
PROVIDERS: ATTEND Internal Medicine
DX: E05.00 Thyrotoxicosis with diffuse goiter without thyrotoxic crisis or storm (principal)
CPT/HCPCS: 36415; 84439; 84443; 84480

== ENCOUNTER 2024-01-27 14:37 | Inpatient (IN) | payer OTHER ==
[~2024-01-27 14:37] MED LIST: ACETAMINOPHEN TAB 500 MG TAB ONE; BUPIVACAINE (PF) 0.25% 30 ML VIAL ONE; DEXAMETHASONE SOD PHOSPHATE 4 MG/ML 1 ML VIAL ONE; ENOXAPARIN 40 MG/0.4 ML SYRINGE SQ ONE; GLYCOPYRROLATE 0.2 MG/ML 2 ML VIAL ONE; HYDROmorphone (PF) 1 MG/ML ONE; LABETALOL 5 MG/ML VIAL MDV ONE; LACTATED RINGERS 1,000 ML BAG ONE; LIDOCAINE 1% INJ 10MG/ML (20 ML MDV) ONE; MIDAZOLAM 2 MG/2 ML VIAL ONE; NEOSTIGMINE 1 MG/ML 10 ML VIAL ONE; ONDANSETRON 4 MG/2 ML VIAL ONE; PROPOFOL 10 MG/ML 20 ML VIAL IV ONE; ROCURONIUM 10 MG/ML (5 ML VIAL) IV ONE; SUCCINYLCHOLINE CHLORIDE 200 MG/10 ML VIAL IV ONE; fentaNYL (PF) 50 MCG/ML 2 ML AMP ONE
[2024-01-27] MEDS ORDERED: HYDROmorphone 0.5 MG/0.5 ML SYRINGE ONE ×5 (14:49→19:20)
[2024-01-27] MEDS ORDERED: ONDANSETRON 4 MG/2 ML VIAL ONE (17:26)
[2024-01-27] MEDS ORDERED: droPERidol 5 MG/2 ML VIAL ONE (18:34)
[2024-01-27] MEDS ORDERED: SIMETHICONE 80 MG CHEWABLE ONE (21:57)
[2024-01-27] MEDS ORDERED: HYDROmorphone 1 MG/ML 1 ML SYRINGE ONE (21:58)
[2024-01-27] MEDS ORDERED: ACETAMINOPHEN IV (For NPO) 100 ML ONE (23:56)
[2024-01-28] MEDS ORDERED: 0.9% NACL WITH KCL 20 MEQ/L 1,000 ML BAG IV ONE
[2024-01-28] MEDS ORDERED: HYDROmorphone 1 MG/ML 1 ML SYRINGE ONE ×5 (01:47→22:29)
[2024-01-28] MEDS ORDERED: SIMETHICONE 80 MG CHEWABLE ONE ×2 (04:12→09:34)
[2024-01-28] MEDS ORDERED: ACETAMINOPHEN IV (For NPO) 100 ML ONE ×3 (06:16→18:26)
[2024-01-28] MEDS ORDERED: ENOXAPARIN 40 MG/0.4 ML SYRINGE SQ ONE ×2 (09:34→22:29)
[2024-01-28] MEDS ORDERED: PANTOPRAZOLE 40 MG/10 ML VIAL ONE (09:34)
[2024-01-28] MEDS ORDERED: DEXAMETHASONE SOD PHOSPHATE 4 MG/ML 1 ML VIAL ONE ×2 (12:12→18:26)
[2024-01-28] MEDS ORDERED: KETOROLAC 15 MG/ML 1 ML VIAL ONE ×2 (12:12→18:26)
[2024-01-29] MEDS ORDERED: ACETAMINOPHEN IV (For NPO) 100 ML ONE ×4 (01:06→18:13)
[2024-01-29] MEDS ORDERED: HYDROmorphone 1 MG/ML 1 ML SYRINGE ONE ×2 (01:15→22:39)
[2024-01-29] MEDS ORDERED: KETOROLAC 15 MG/ML 1 ML VIAL ONE ×4 (01:47→18:11)
[2024-01-29] MEDS ORDERED: DEXAMETHASONE SOD PHOSPHATE 4 MG/ML 1 ML VIAL ONE ×4 (01:47→18:12)
[2024-01-29] MEDS ORDERED: PANTOPRAZOLE 40 MG/10 ML VIAL ONE (09:04)
[2024-01-29] MEDS ORDERED: ENOXAPARIN 40 MG/0.4 ML SYRINGE SQ ONE ×2 (09:05→22:39)
[2024-01-29] MEDS ORDERED: SIMETHICONE 80 MG CHEWABLE ONE ×3 (12:24→22:39)
[2024-01-29] MEDS ORDERED: HYDROmorphone 0.5 MG/0.5 ML SYRINGE ONE ×2 (12:25→18:13)
[2024-01-30] MEDS ORDERED: DEXAMETHASONE SOD PHOSPHATE 4 MG/ML 1 ML VIAL ONE ×5 (01:06→23:47)
[2024-01-30] MEDS ORDERED: ACETAMINOPHEN IV (For NPO) 100 ML ONE (01:06)
[2024-01-30] MEDS ORDERED: KETOROLAC 15 MG/ML 1 ML VIAL ONE ×5 (01:06→23:47)
[2024-01-30] MEDS ORDERED: HYDROmorphone 1 MG/ML 1 ML SYRINGE ONE ×2 (04:32→23:48)
[2024-01-30] MEDS ORDERED: SIMETHICONE 80 MG CHEWABLE ONE ×4 (06:59→23:48)
[2024-01-30] MEDS ORDERED: PANTOPRAZOLE 40 MG/10 ML VIAL ONE (07:47)
[2024-01-30] MEDS ORDERED: ENOXAPARIN 40 MG/0.4 ML SYRINGE SQ ONE ×2 (07:48→22:09)
[2024-01-30] MEDS ORDERED: HYDROmorphone 0.5 MG/0.5 ML SYRINGE ONE ×3 (07:49→18:22)
[2024-01-31] MEDS ORDERED: 0.9% NACL WITH KCL 20 MEQ/L 1,000 ML BAG IV ONE (00:01)
[2024-01-31] MEDS ORDERED: SIMETHICONE 80 MG CHEWABLE ONE ×4 (05:45→23:55)
[2024-01-31] MEDS ORDERED: DEXAMETHASONE SOD PHOSPHATE 4 MG/ML 1 ML VIAL ONE ×4 (05:45→23:55)
[2024-01-31] MEDS ORDERED: KETOROLAC 15 MG/ML 1 ML VIAL ONE ×4 (05:45→23:55)
[2024-01-31] MEDS ORDERED: ENOXAPARIN 40 MG/0.4 ML SYRINGE SQ ONE ×2 (08:54→20:01)
[2024-01-31] MEDS ORDERED: HYDROmorphone 1 MG/ML 1 ML SYRINGE ONE ×2 (08:55→22:06)
[2024-01-31] MEDS ORDERED: PANTOPRAZOLE 40 MG/10 ML VIAL ONE (09:08)
[2024-01-31] MEDS ORDERED: ACETAMINOPHEN IV (For NPO) 100 ML ONE (23:55)
[2024-02-01] MEDS ORDERED: KETOROLAC 15 MG/ML 1 ML VIAL ONE ×3 (05:52→17:40)
[2024-02-01] MEDS ORDERED: SIMETHICONE 80 MG CHEWABLE ONE ×2 (05:53→11:50)
[2024-02-01] MEDS ORDERED: DEXAMETHASONE SOD PHOSPHATE 4 MG/ML 1 ML VIAL ONE ×2 (05:53→11:50)
[2024-02-01] MEDS ORDERED: ACETAMINOPHEN IV (For NPO) 100 ML ONE ×2 (05:53→11:51)
[2024-02-01] MEDS ORDERED: PANTOPRAZOLE 40 MG/10 ML VIAL ONE (10:10)
[2024-02-01] MEDS ORDERED: ENOXAPARIN 40 MG/0.4 ML SYRINGE SQ ONE (10:10)
[2024-02-01] MEDS ORDERED: HYDROmorphone 1 MG/ML 1 ML SYRINGE ONE ×4 (10:22→22:58)
[2024-02-01] MEDS ORDERED: DEXTROSE 50% SYRINGE 50 ML IVP ONE (22:23)
[2024-02-02] MEDS ORDERED: NALOXONE 0.4 MG/ML 1 ML VIAL IV PRN
[2024-02-02] MEDS ORDERED: 0.9% NACL WITH KCL 20 MEQ/L 1,000 ML IV SCH
[2024-02-02] MEDS ORDERED: ONDANSETRON 4 MG/2 ML VIAL IVP PRN
[2024-02-02] MEDS ORDERED: diphenhydrAMINE 50 MG/ML 1 ML VIAL IVP PRN
[2024-02-02] MEDS ORDERED: HYOSCYAMINE ORAL DROPS 1.875 MG/15 ML BOTTLE PO PRN
[2024-02-02] MEDS ORDERED: KETOROLAC 15 MG/ML 1 ML VIAL ONE ×2 (00:24→06:03)
[2024-02-02] MEDS ORDERED: HYDROmorphone 1 MG/ML 1 ML SYRINGE ONE ×3 (02:11→15:32)
[2024-02-02] MEDS: KETOROLAC 15 MG/ML 1 ML VIAL IVP SCH (03:16)
[2024-02-02] MEDS: CALCIUM GLUCONATE IN NACL 1 GM in SALINE 1 100ML.BAG IVPB ONE (03:17)
[2024-02-02] MEDS: DEXTROSE 50% SYRINGE 50 ML IVP ONE (03:17)
[2024-02-02] MEDS: SODIUM CHLORIDE 0.9% 1,000 ML IV SCH ×2 (03:17→09:00)
[2024-02-02] MEDS: DEXAMETHASONE SOD PHOSPHATE 4 MG/ML 1 ML VIAL IVP SCH (03:18)
[2024-02-02] MEDS: INSULIN REGULAR 100 UNIT/ML VIAL (IV) IV ONE (03:18)
[2024-02-02] MEDS: SODIUM ZIRCONIUM CYCLOSILICATE 10 GM PACKET PO ONE (03:18)
[2024-02-02] MEDS: SIMETHICONE 80 MG CHEWABLE PO SCH (03:19)
[2024-02-02] MEDS: HYDROmorphone 1 MG/ML 1 ML SYRINGE IVP PRN (06:08)
[2024-02-02] MEDS: ALBUTEROL NEBULIZED 2.5 MG/3 ML INHALATION SCH (08:13)
[2024-02-02] MEDS ORDERED: PANTOPRAZOLE 40 MG/10 ML VIAL ONE (08:18)
[2024-02-02] MEDS ORDERED: HYDROmorphone 0.5 MG/0.5 ML SYRINGE ONE ×2 (08:18→12:25)
[2024-02-02] MEDS: ENOXAPARIN 40 MG/0.4 ML SYRINGE SQ SCH (08:20)
[2024-02-02] MEDS: PIPERACILLIN-TAZOBACTAM 3.375 GM in SODIUM CHLORIDE 0.9% 100 ML IVPB SCH (08:20)
[2024-02-02] MEDS: HYDROmorphone 0.5 MG/0.5 ML SYRINGE IVP PRN (08:20)
[2024-02-02] MEDS: PANTOPRAZOLE 40 MG/10 ML VIAL IVP SCH (08:20)
--- NOTE | 2024-02-02 08:26 | P.PN ---
Subjective Progress Note Date: 02/02/24 The patient had some complaints of shoulder pain yesterday afternoon. CT scan of the chest abdomen pelvis were performed. There is evidence of a leak of her gastric sleeve near the GE junction. Patient states she still has some minimal pain today. Otherwise she feels well. On exam vital signs appear stable. Abdomen is soft with minimal epigastric tenderness. Gastric sleeve leak. Patient will be transferred to [facility] for advanced endoscopy GI service. Objective - Vital Signs Vital signs: Vital Signs Temp 97.6 F 02/02/24 07:15 Pulse 88 02/02/24 08:22 Resp 17 02/02/24 07:15 BP 136/83 02/02/24 07:15 Pulse Ox 96 02/02/24 08:13 FiO2 Intake & Output 02/01/24 02/02/24 02/02/24 18:59 06:59 18:59 Weight 90.718 kg
[2024-02-02] MEDS: amLODIPine 10 MG TAB PO SCH (09:51)
[2024-02-02] MEDS ORDERED: ALBUTEROL NEBULIZED 2.5 MG/3 ML INHALATION ONE (11:39)
[2024-02-02 12:47] LABS: ALT 36 U/L (4-34); AST 19 U/L (14-36); African American GFR (CKD) >90 (>60 ml/min/1.73 sqM); Albumin 3.4 g/dL (3.5-5.0); Albumin/Globulin Ratio 1.2; Alkaline Phosphatase 69 U/L (38-126); Anion Gap 8 mmol/L; Blood Urea Nitrogen 12 mg/dL (7-17); Calcium 8.2 mg/dL (8.4-10.2); Carbon Dioxide 22 mmol/L (22-30); Chloride 108 mmol/L (98-107); Globulin 2.8 g/dL; Glucose 139 mg/dL (74-99); Lipase 51 U/L (23-300); Non-African American GFR(CKD) >90 (>60 ml/min/1.73 sqM); Potassium 3.5 mmol/L (3.5-5.1); Sodium 138 mmol/L (137-145); Total Bilirubin 0.8 mg/dL (0.2-1.3); Total Protein 6.2 g/dL (6.3-8.2)
[2024-02-02 12:51] LABS: Basophils # (A) 0.1 k/uL (0-0.2); Basophils % (A) 0 %; Eosinophils # (A) 0.3 k/uL (0-0.7); Eosinophils % (A) 1 %; HCT 44.4 % (34.0-46.0); HGB 13.6 gm/dL (11.4-16.0); Hypochromasia Slight; Lymphocytes # (A) 0.9 k/uL (1.0-4.8); Lymphocytes % (A) 4 %; MCH 26.6 pg (25.0-35.0); MCHC 30.6 g/dL (31.0-37.0); Mean Platelet Volume 8.3; Monocytes # (A) 0.4 k/uL (0-1.0); Monocytes % (A) 1 %; Neutrophils # (A) 23.4 k/uL (1.3-7.7); Neutrophils % (A) 93 %; Platelet Count 327 k/uL (150-450); RDW 15.8 % (11.5-15.5); WBC 25.2 k/uL (3.8-10.6)
[2024-02-02] MEDS: SODIUM CHLORIDE 0.9% 1,000 ML IV ONE ×2 (13:45→14:48)
[2024-02-02] MEDS: ACETAMINOPHEN IV (For NPO) 1,000 MG in EMPTY BAG 1 BAG IVPB PRN (13:48)
[2024-02-02 15:05] VITALS: BP 143/81; PULSE 86; RESP 17; TEMP 98.6
--- NOTE | 2024-02-21 12:34 | CONS ---
CONSULTATION CHIEF COMPLAINT: Hyperthyroidism and obesity. HISTORY OF PRESENT ILLNESS: This lady has come in for an elective bariatric procedure with gastric stapling. She also has a history of hyperthyroidism and hypertension. REVIEW OF SYSTEMS: She has had no recent headaches, chest pain, shortness of breath, abdominal pain, nausea, vomiting, diarrhea, urinary complaints, etc. Past medical history, family history, and personal and social histories are all otherwise unremarkable or noncontributory. PHYSICAL EXAMINATION: VITAL SIGNS: Normal. HEAD, EARS, EYES, NOSE, MOUTH, THROAT: Normal. CHEST: Clear. CARDIAC: Normal sinus rhythm. ABDOMEN: Slightly protuberant, soft and nontender without any visceromegaly or masses. Bowel sounds are present. EXTREMITIES: Normal. NEUROLOGIC: Intact. IMPRESSION: 1. Obesity. 2. Hyperthyroidism. 3. Hypertension. RECOMMENDATIONS: None. MMODL / IJN: [id number] /
--- NOTE | 2024-02-21 13:33 | PN ---
PROGRESS NOTE DATE OF SERVICE: 01/29/2024 CHIEF COMPLAINT: Persistent difficulty with dysphagia and early satiety. PHYSICAL EXAMINATION: CHEST: Clear. CARDIAC: Normal. ABDOMEN: Soft. IMPRESSION: 1. Status post gastric stapling with some dysphagia. 2. Hyperthyroidism. PLAN: Progress activity and diet as tolerated and wait for discharge from surgery. MMODL / IJN: [id number] /
--- NOTE | 2024-02-21 13:33 | PN ---
PROGRESS NOTE DATE OF SERVICE: 01/31/2024 CHIEF COMPLAINT: Post gastric stapling. HISTORY OF PRESENT ILLNESS: This lady is starting to be able to drink liquids with some more efficiency and less discomfort. PHYSICAL EXAMINATION: ABDOMEN: Soft. CHEST: Clear. VITAL SIGNS: Normal. IMPRESSION: Status post gastric stapling. PLAN: Continue to follow with Surgery. MMODL / IJN: [id number] /
--- NOTE | 2024-02-21 13:33 | PN ---
PROGRESS NOTE DATE OF SERVICE: 01/28/2024 CHIEF COMPLAINT: Status post gastric stapling. HISTORY OF PRESENT ILLNESS: This lady is having a little trouble with swallowing. She is also having early satiety whenever she swallows almost anything. She is not vomiting. She has had no fever or chills. PHYSICAL EXAMINATION: ABDOMEN: Soft and bowel sounds are present. CHEST: Clear. IMPRESSION: Status post gastric stapling. PLAN: Continue to follow and she will be discharged when cleared by Surgery. MMODL / IJN: [id number] /
--- NOTE | 2024-02-21 14:04 | PN ---
PROGRESS NOTE DATE OF SERVICE: 01/30/2024 CHIEF COMPLAINT: Status post gastric stapling. HISTORY OF PRESENT ILLNESS: This lady is doing well and things are started a moving, but she is still having early satiety. PHYSICAL EXAMINATION: VITAL SIGNS: Normal. CHEST: Clear. CARDIAC: Normal. IMPRESSION: Status post gastric stapling with slight dysphagia. PLAN: No change in program, and she is being followed by Surgery. MMODL / IJN: [id number] /
--- NOTE | 2024-02-21 15:40 | PN ---
PROGRESS NOTE DATE OF SERVICE: 02/01/2024 CHIEF COMPLAINT: Status post gastric stapling. HISTORY OF PRESENT ILLNESS: This lady is continuing to have some difficulty. She just over the last hour or two developed significant abdominal pain with some discomfort in the left shoulder. She has had no fever, chills, cough, hemoptysis, nausea, vomiting, etc. PHYSICAL EXAMINATION: CHEST: Clear. CARDIAC: Normal. IMPRESSION: Acute onset of abdominal pain radiating into the left shoulder. PLAN: 1. Flat and upright of the abdomen. 2. Blood work. 3. Surgeon will be notified. MMODL / IJN: [id number] /
--- NOTE | 2024-02-24 08:25 | PN ---
PROGRESS NOTE DATE OF SERVICE: 02/02/2024 CHIEF COMPLAINT: Status post gastric stapling with abdominal pain and possible gastric leak. HISTORY OF PRESENT ILLNESS: This lady is still having some discomfort and she is being transferred to [facility]. REVIEW OF SYSTEMS: She has had no fever, chills, nausea, vomiting, etc. PHYSICAL EXAMINATION: VITAL SIGNS: Normal. CHEST: Clear. CARDIAC: Normal. ABDOMEN: Soft. IMPRESSION: 1. Possible leak from gastric stapling. 2. Hypothyroidism. 3. Hypertension. PLAN: She waits transfer to [facility]. MMODL / IJN: [id number] /
--- NOTE | 2024-03-05 13:10 | FL ---
Lomas Grisel ID: [id number] : 1980 SINGLE CONTRAST UPPER GI EXAMINATION: CLINICAL HISTORY: 43-year-old female postop assessment, status post gastrectomy, bariatric surgery TECHNIQUE: Single contrast exam performed with 25 mL Isovue-370 contrast. Total fluoroscopy time 1 minute for seconds. Total images: 25 Total DAP: 10 mGycm2. FINDINGS: The patient swallowed oral contrast without difficulty or delay. Esophageal peristalsis and motility are within normal limits. There is prompt passage of contrast from the esophagus into the stomach. After an initial hesitancy with some gastroesophageal and intraesophageal reflux, there is passage ac ross the patient's gastrectomy into the distal stomach. The degree of hesitancy improves over the cou rse of the exam. There is eventual passage of contrast into the duodenum. There is no evidence of con trast extravasation to suggest leak. No postsurgical free air. IMPRESSION: No evidence of leak status post sleeve gastrectomy. There is a relative mild obstruction/hesitancy wh ich improves during the course of the exam probably due to postoperative edema. No free air.
--- NOTE | 2024-03-05 14:44 | OP ---
OPERATIVE REPORT DATE OF SERVICE : 01/27/2024 PREOPERATIVE DIAGNOSES: Morbid obesity, hypertension. POSTOPERATIVE DIAGNOSES: Morbid obesity, hypertension. PROCEDURE: Laparoscopic da Marciano-assisted sleeve gastrectomy. ANESTHESIA: General. COMPLICATIONS: None. OPERATIVE PROCEDURE: The patient was brought and placed on the OR table in the supine position. The patient was placed under general anesthesia. Attempts at accessing the peritoneal cavity through a 5 mm left upper quadrant trocar were unsuccessful given a predominance of preperitoneal fat that turned out. Instead, a vertical incision was made in the supraumbilical location. The fascia was retracted anteriorly with Eusebia forceps. The Veress needle was advanced in the peritoneal cavity. The saline drop test was normal. Full insufflation took place. A 5 mm trocar was then inserted. The previous attempted location was inspected and there was no peritoneal penetration. Through that same incision, an 8 mm trocar was placed. An additional 8 mm trocar was placed in the lateral aspect of the left upper quadrant as well as switching the 5 mm to an 8 mm at the umbilicus. A 12 mm trocar was placed in the right upper quadrant. All these were placed under direct visualization. A right subxiphoid 5 mm trocar was placed and removed. Through the same opening, a liver retractor was advanced and used to elevate the left lobe of the liver anteriorly. This was fixed to fixed-arm retractor. The robot was then brought and placed in the appropriate position. The robot was fully docked. Arm 1 was a fenestrated bipolar, arm 2 was camera, arm 3 was vessel sealer, arm 4 was small grasper. The camera was used to inspect the greater curvature of the stomach. The greater curvature of the stomach was then fully dissected using vessel sealer. The posterior short gastrics were mobilized as well. No visible hiatal hernia was seen. The stomach had been decompressed with a gastric tube. A gastric tube was removed and a 40-Hungarian blunt tip dilator was advanced. This was placed in the antrum. The 1st firing of the stapler was a green load. Next stapler was a blue load. Next, 3 firings of the stapler were blue load with SeamGuard. A small portion at the top of the stomach was divided using a blue load without SeamGuard. The pressure was brought down to 8 mm. A few areas of oozing along the staple line were identified and controlled using the bipolar forceps with cautery. No further bleeding was seen. Reinsufflation to [address] The dilator and gastric tube were swabbed. Instillation with 100 cc of methylene blue took place. No leak was seen. Tisseel, fibrin glue were used along the length of staple line. The stomach was then removed from the 12 mm trocar site. The fascia at the 12 mm trocar site was then reapproximated using a [id number] 0 Vicryl suture with a Albert-Rolando technique. Skin at all 5 incisions was closed using 4-0 Monocryl sutures. Skin glue and sterile dressing were applied. MMODL / IJN: [id number] /
--- NOTE | 2024-03-05 14:46 | PN ---
PROGRESS NOTE DATE OF SERVICE: 01/31/2024 SUBJECTIVE: Ms. Lomas still has complaints of dysphagia on clear liquids. She has had limited oral intake. OBJECTIVE: VITAL SIGNS: Stable. ABDOMEN: Soft. Status post sleeve gastrectomy with postoperative dysphagia. The patient will continue supportive care. She also will remain on clear liquids. MMODL / IJN: [id number] /
--- NOTE | 2024-03-05 14:47 | PN ---
PROGRESS NOTE DATE OF SERVICE: 02/01/2024 SUBJECTIVE: Ms. Lomas feels better today. She has had a little more oral intake. She is requesting full liquids. OBJECTIVE: VITAL SIGNS: Appear stable. ABDOMEN: Soft. The patient is status post sleeve gastrectomy with some postoperative dysphagia. The patient will start on full liquids today. MMODL / IJN: [id number] /
== END 2024-02-02 15:45 | disposition short-term general hospital (02) | DRG 403 ==
LOC: 4SSUR 14:37
PROVIDERS: ADMIT Surgery; ATTEND Surgery
PROC: 8E0W4CZ Robotic Assisted Procedure of Trunk Region, Percutaneous Endoscopic Approach (ICD-10-PCS; 2024-01-27)
PROC: 0DB64Z3 Excision of Stomach, Percutaneous Endoscopic Approach, Vertical (ICD-10-PCS; principal; 2024-01-27 12:35)
DX: E66.01 Morbid (severe) obesity due to excess calories (principal); E03.9 Hypothyroidism, unspecified; K95.89 Other complications of other bariatric procedure; E05.90 Thyrotoxicosis, unspecified without thyrotoxic crisis or storm; I10 Essential (primary) hypertension; R13.10 Dysphagia, unspecified; Y83.2 Surgical operation with anastomosis, bypass or graft as the cause of abnormal reaction of the patient, or of later complication, without mention of misadventure at the time of the procedure; Z68.32 Body mass index [BMI] 32.0-32.9, adult
CPT/HCPCS: 71275; 74177; 74240; 80053; 81025; 83605; 83690; 85025; 94640; 94760

== ENCOUNTER → 2024-02-25 | Outpatient (CLI) | payer OTHER ==
[2024-02-25 13:31] VITALS: BP 120/83; PULSE 92; RESP 16; TEMP 98.1; BMI 34.0
--- NOTE | 2024-02-25 14:51 | P.BASOAP ---
Subjective Progress Note Date: 02/25/24 Principal diagnosis: Morbid obesity, leak 44-year-old female underwent elective sleeve gastrectomy on 01/26. Patient was kept hospitalized for dysphagia symptoms and lack of adequate intake. She developed upper abdominal pain which led to CAT scan showing evidence of extravasation and leak from the sleeve. She was transferred to [facility] for further evaluation by their advanced GI services. Patient was hospitalized there for 1 to 2 weeks. She underwent attempted endoscopic stent placement twice which ended up being mostly unsuccessful. She then had a indwelling drain placed by GI. She had to percutaneous drains placed for abdominal abscess collections. She was discharged home with a right arm PICC line and TPN. She is on her TPN 14 hours of the day from 5:30 PM until she is finished. She is still on oral antibiotics in the form of doxycycline and Augmentin. Since discharge she has done fairly well. Patient has minimal pain. Says her pain is 1 out of 10.c takes Protonix daily. Patient is on a full liquid diet. Oral intake is fairly low with minimal liquid and minimal protein intake currently. Patient describes a small amount of vomiting daily. She says she is nauseated and believes it is related to the oral antibiotics. Patient went from a preoperative weight of 203 to 186 today. She is afebrile. Heart rate is normal. Labs from yesterday show a white blood cell count of 8.9, hemoglobin 8.8, platelets of 457, mild LFT elevation. Patient says she is having labs drawn weekly. She has a follow-up appointment with [facility] for CAT scan on 03/13. She has a follow-up with Dr. Guzman bariatric surgeon on 03/20 and follow-up with GI that same day for EGD. Patient was told when she was discharged that the drains would likely be removed this week. She has had 40 cc of output from one of the 2 drains and 10 cc of output daily from the other. Objective - Vital Signs Vital signs: Vital Signs Temp 98.1 F 02/25/24 13:27 Pulse 92 02/25/24 13:27 Resp 16 02/25/24 13:27 BP 120/83 02/25/24 13:27 Pulse Ox FiO2 Intake & Output 02/24/24 02/25/24 02/25/24 18:59 06:59 18:59 Weight 84.368 kg - Exam Abdomen: Soft, nontender, nondistended, [address] 1 in the upper abdomen slightly right of midline and the other in the lower abdomen midline, recent incisions clean and dry Assessment/Plan (1) Gastric leak Narrative/Plan: 44-year-old female with recent sleeve gastrectomy followed by leak from the proximal staple line. Patient doing much better after being seen and treated at [facility]. Patient has a indwelling drain in place. She has follow- up in place to see GI and bariatric surgery at [facility]. Patient was told the drains could likely come out this week. One of the 2 drains are still putting out moderate volume. Will order repeat CT abdomen pelvis this week. Follow-up 1 week will be arranged here in the office as well. Continue oral antibiotics. Continue TPN. Full liquid diet for comfort. Monitor for fevers, worsening pain, or other signs of infection. Plan: Date: 02/25/24 Initial Weight: 92.986 kg Initial BMI: 37.5 Current Weight: 84.368 kg Current BMI: 34.0 Type of Surgery: Vertical Sleeve Gastrectomy Total Volume in Band: Previous Volume: Volume Removed: Volume Added: Band Size:
== END ==
LOC: BARWHC3 13:17
PROVIDERS: ATTEND Surgery
CPT/HCPCS: 97802; 99211

== ENCOUNTER → 2024-03-03 | Outpatient (CLI) | payer OTHER ==
[2024-03-03 09:15] LABS: Anisocytosis Slight; Basophils % (A) 0 %; Eosinophils # (A) 0.1 k/uL (0-0.7); Eosinophils % (A) 1 %; HCT 34.7 % (34.0-46.0); HGB 10.8 gm/dL (11.4-16.0); Hypochromasia Marked; Lymphocytes % (A) 28 %; MCH 25.8 pg (25.0-35.0); MCV 83.3 fL (80.0-100.0); Mean Platelet Volume 8.7; Monocytes # (A) 0.4 k/uL (0-1.0); Monocytes % (A) 5 %; Neutrophils # (A) 4.6 k/uL (1.3-7.7); Neutrophils % (A) 64 %; Platelet Count 306 k/uL (150-450); RBC 4.17 m/uL (3.80-5.40); RDW 16.5 % (11.5-15.5); WBC 7.2 k/uL (3.8-10.6)
[2024-03-03 09:48] LABS: ALT 47 U/L (4-34); African American GFR (CKD) >90 (>60 ml/min/1.73 sqM); Anion Gap 8 mmol/L; Blood Urea Nitrogen 23 mg/dL (7-17); Calcium 8.9 mg/dL (8.4-10.2); Carbon Dioxide 25 mmol/L (22-30); Chloride 106 mmol/L (98-107); Glucose 117 mg/dL (74-99); Non-African American GFR(CKD) >90 (>60 ml/min/1.73 sqM); Sodium 139 mmol/L (137-145); Total Bilirubin 0.9 mg/dL (0.2-1.3)
[2024-03-03 09:51] LABS: AST 56 U/L (14-36); Albumin 3.9 g/dL (3.5-5.0); Alkaline Phosphatase 97 U/L (38-126); Magnesium 2.3 mg/dL (1.6-2.3); Potassium 5.8 mmol/L (3.5-5.1); Total Protein 8.2 g/dL (6.3-8.2)
--- NOTE | 2024-03-09 17:00 | CT ---
EXAMINATION TYPE: CT abdomen pelvis w con DATE OF EXAM: 03/03/2024 COMPARISON: 02/02/2024 INDICATION: peritoneal abscess DLP: 1197.1 mGycm, Automated exposure control for dose reduction was used. CONTRAST: 100 mL of Isovue 300. Study performed with Oral Contrast TECHNIQUE: Axial images were obtained from above the diaphragm to the pubic rami in the axial plane a t 5 mm thick sections. Reconstructed images are reviewed on the computer in the coronal plane. FINDINGS: Limited CT sections are obtained the lung bases. The lung bases are clear. CT ABDOMEN: Free air is at the right diaphragm. There is a intraperitoneal drainage catheter present into an abscess in the epigastric region. It measures 3.4 x 1.5 cm. Small periumbilical hernia containing mesenteric fat without loops of bowel involvement is present. Liver: Some minimal low density collection with a wall is just anterior to the right tip of the liver . This area measures 2.6 x 0.7 cm. Spleen: Normal Pancreas: Normal Adrenal glands: The adrenal glands are normal. Gallbladder: Normal Kidneys: No masses are evident. No hydronephrosis is present. No cysts are present. No renal stone s are evident. Aorta: Normal Inferior vena cava: Normal. CT PELVIS: Intraperitoneal anterior abdominal wall drainage catheter is present. This resides within the 3.1 x 6.4 cm abscess. This is anterior to the uterus above the urinary bladder. Loops of bowel within the abdomen and pelvis are normal. There are loops of bowel which are incom pletely distended or lack oral contrast limiting their evaluation. Appendix: Not identified Urinary bladder: Normal. Genitourinary structures: Uterus is normal. Adnexa appear normal. Osseous structures: No suspicious lytic or sclerotic lesions. Sacroiliac joint vacuum phenomenon is p resent. Preliminary results were discussed day of the scan with the surgeon by the available radiologist. IMPRESSION: 1. Intraperitoneal drainage catheters into abscesses in the epigastric region and anterior lower pel vis. Note is made of some free air under the right diaphragm. [facility], , 03/09/2024 4:58 PM
== END | disposition home or self-care (01) ==
LOC: RADPROMAIN 08:25
PROVIDERS: ATTEND Surgery
DX: K65.1 Peritoneal abscess (principal); K91.89 Other postprocedural complications and disorders of digestive system
CPT/HCPCS: 74177; 80053; 83735; 84100; 84478; 85025; 86140

== ENCOUNTER → 2024-03-03 | Outpatient (CLI) | payer OTHER ==
[2024-03-03 13:13] VITALS: BP 126/85; PULSE 53; RESP 16; TEMP 98.5; BMI 33.6
--- NOTE | 2024-03-03 20:10 | P.BASOAP ---
Subjective Progress Note Date: 03/03/24 Principal diagnosis: Post sleeve gastrectomy Patient returns for 1 week follow-up. She had her repeat CAT scan finally performed today. Apparently there were issues obtaining authorization. She had her labs drawn today. White blood cell count 7.7, hemoglobin 10.8, potassium 5.8, liver enzymes slightly elevated, CRP 1.0. Patient has been feeling fairly well. Minimal pain. He has been doing senior advisory. Today after the CAT scan she developed nausea and had a small amount of emesis. She has had minimal episodes of vomiting since her last visit. Appetite remains poor. Remains on TPN at night. Remains on antibiotics as well. CAT scan was reviewed with radiology. [address] 1 transgastric drainage tube also identified. No obvious leak or perigastric abscess. There is a pocket of air adjacent to the superior drain site with small amount of fluid there. The seems to be separate from 2 other air pockets above the dome of the liver. The inferior midline drain also has a small amount of liquid there. This seems to track through a very narrow ribbonlike area to the supra hepatic location. Patient states she has not anterior drains in several days and there is a less than 5 to 10 cc in each drainage container. No pain at the site. She is afebrile. Slightly bradycardic. Objective - Vital Signs Vital signs: Vital Signs Temp 98.5 F 03/03/24 13:11 Pulse 53 L 03/03/24 13:11 Resp 16 03/03/24 13:11 BP 126/85 03/03/24 13:11 Pulse Ox FiO2 Intake & Output 03/03/24 03/03/24 03/04/24 06:59 18:59 06:59 Weight 83.461 kg - Exam Abdomen: Soft, nondistended, both drains in place, minimal output from each, mostly serosanguineous, slight cloudiness to the superior drain, no bile, nontender Assessment/Plan (1) Gastric leak Narrative/Plan: Patient seems to be doing gradually better. Appetite remains poor. She remains afebrile and nontoxic-appearing. CAT scan reviewed with patient. She is quite anxious to have both drains removed as she was told after leaving [facility] he would be removed 1 week later. Minimal drainage from each drain site currently. I suspect these drains are occluded at this point. Will remove both drains at this time. Plan repeat CAT scan in 1 week to see if any reaccumulation of fluid is identified. Continue TPN. Will forward labs to outpatient pharmacy regarding TPN. Continue antibiotics per infectious disease at end for hospital. Follow-up with me this Saturday for recheck. Plan: Date: 03/03/24 Initial Weight: 92.986 kg Initial BMI: 37.5 Current Weight: 83.461 kg Current BMI: 33.6 Type of Surgery: Vertical Sleeve Gastrectomy Total Volume in Band: Previous Volume: Volume Removed: Volume Added: Band Size:
== END ==
LOC: BARWHC3 13:03
PROVIDERS: ATTEND Surgery
DX: K91.89 Other postprocedural complications and disorders of digestive system (principal)
CPT/HCPCS: 99211

== ENCOUNTER → 2024-03-06 | Outpatient (CLI) | payer OTHER ==
[2024-03-06 11:11] VITALS: BP 104/68; PULSE 77; RESP 14; TEMP 98.7
--- NOTE | 2024-03-06 12:15 | P.BASOAP ---
Subjective Progress Note Date: 03/06/24 Principal diagnosis: Sleeve leak Patient returns for reevaluation. Last seen on Saturday. Patient had a second episode of vomiting Saturday evening. No nausea or vomiting yesterday or the day before. Feels better today. Still with significant anorexia. Patient remains on TPN. Says she was able to take in most of a protein shake yesterday along with 1 bottle of water. No dysphagia. No fevers. No significant abdominal pain. Mild soreness at the inferior midline drain removal site. No redness or swelling at either location. They really did not drain much after discharge. Her dual-lumen PICC line has an occluded port apparently. She was advised to have the catheter flushed. Patient is afebrile. Heart rate normal. Has had some lower blood pressures recently. Remains on amlodipine and metoprolol per primary service. Objective - Vital Signs Vital signs: Vital Signs Temp 98.7 F 03/06/24 11:05 Pulse 77 03/06/24 11:05 Resp 14 03/06/24 11:05 BP 104/68 03/06/24 11:05 Pulse Ox FiO2 Intake & Output 03/05/24 03/06/24 03/06/24 18:59 06:59 18:59 Weight 83.915 kg - Exam Abdomen: Soft, nondistended, minimal tenderness at drain exit site inferiorly, both drain exit sites dry, no erythema or induration, no upper abdominal tenderness Assessment/Plan (1) Gastric leak Narrative/Plan: Patient doing well at this time. Anorexia seems to be the biggest issue currently. She has an appointment with GI next . Will ask procedures to Cathflo the PICC line today. Follow-up with me next Saturday. Continue TPN and antibiotics per Gómez Rashid. Plan: Date: 03/06/24 Initial Weight: 92.986 kg Initial BMI: Current Weight: 83.915 kg Current BMI: Type of Surgery: Total Volume in Band: Previous Volume: Volume Removed: Volume Added: Band Size:
== END ==
LOC: BARWHC3 10:52
PROVIDERS: ATTEND Surgery
DX: K91.89 Other postprocedural complications and disorders of digestive system (principal)
CPT/HCPCS: 99211

== ENCOUNTER → 2024-03-10 | Outpatient (CLI) | payer OTHER ==
[2024-03-10 13:59] VITALS: BP 128/69; PULSE 99; TEMP 98.1; BMI 33.8
--- NOTE | 2024-03-10 17:06 | P.BASOAP ---
Subjective Progress Note Date: 03/10/24 Principal diagnosis: Sleeve leak Patient returns for recheck. Last seen on Saturday. Patient says she did fairly well Saturday and Saturday however yesterday she had an episode of vomiting. She has been vomiting again today intermittently. Says she is after vomiting today she noticed some right upper quadrant discomfort. She thinks it is muscular from the emesis. Denies fevers. No pain at the drain sites. Heart rate today 99. She is afebrile. Labs yesterday show a normal white blood cell count. She has an appointment to see [facility] bariatrics this . Her last antibiotics is Saturday. She thinks her repeat CAT scan and GI visit are next week at [facility]. Objective - Vital Signs Vital signs: Vital Signs Temp 98.1 F 03/10/24 13:55 Pulse 99 03/10/24 13:55 Resp BP 128/69 03/10/24 13:55 Pulse Ox FiO2 Intake & Output 03/09/24 03/10/24 03/10/24 18:59 06:59 18:59 Weight 83.915 kg - Exam Abdomen: Soft, nondistended, nontender, drain sites clean and dry, minimal upper abdominal tenderness Assessment/Plan (1) Gastric leak Narrative/Plan: Patient with vomiting today. Seems to be intermittent in nature. Labs look good from yesterday. Continue TPN. Finish course of antibiotics. Await bariatric evaluation at [facility]. Patient does require repeat CAT scan however unsure if this is going to be performed at [facility] or not. Will try to contact Dr. Guzman regarding this. Plan: Date: 03/10/24 Initial Weight: 92.986 kg Initial BMI: 37.5 Current Weight: 83.915 kg Current BMI: 33.8 Type of Surgery: Total Volume in Band: Previous Volume: Volume Removed: Volume Added: Band Size:
== END ==
LOC: BARWHC3 13:46
PROVIDERS: ATTEND Surgery
DX: R11.10 Vomiting, unspecified (principal)
CPT/HCPCS: 99211

== ENCOUNTER → 2024-03-27 | Outpatient (CLI) | payer OTHER ==
[2024-03-27 11:13] VITALS: BP 134/78; PULSE 98; TEMP 98; BMI 31.8
== END ==
LOC: BARWHC3 10:56
PROVIDERS: ATTEND Surgery
DX: E66.01 Morbid (severe) obesity due to excess calories (principal); Z68.31 Body mass index [BMI] 31.0-31.9, adult
CPT/HCPCS: 99211

== ENCOUNTER → 2024-04-14 | Outpatient (CLI) | payer OTHER ==
[2024-04-14 14:09] VITALS: BP 115/71; PULSE 80; RESP 16; TEMP 99; BMI 31.6
--- NOTE | 2024-04-14 14:50 | P.BASOAP ---
Subjective Progress Note Date: 04/14/24 Principal diagnosis: Morbid obesity Patient returns for recheck. Last seen 1 month ago. Patient had since her last visit with me her internal drain removed, balloon dilation of her sleeve, repeat CAT scan showing resolution of fluid collections. Patient is doing well. Tolerating liquids and solids. Says she thinks she is getting adequate protein intake. She had not been documenting well how much. She says she does not drink as much as maybe she should mostly because she is not thirsty. She is drinking about 40 ounces of liquids per day. Urine is clear. She is off of her hypertensive medications. Taking Actigall and Protonix daily. Good restriction with her sleeve. Weight down to 173 from a preoperative weight of 201. Objective - Vital Signs Vital signs: Vital Signs Temp 99 F 04/14/24 14:05 Pulse 80 04/14/24 14:05 Resp 16 04/14/24 14:05 BP 115/71 04/14/24 14:05 Pulse Ox FiO2 Intake & Output 04/13/24 04/14/24 04/14/24 18:59 06:59 18:59 Weight 78.471 kg - Exam Abdomen: Soft, nontender, nondistended Assessment/Plan (1) Severe obesity (BMI 35.0-35.9 with comorbidity) Narrative/Plan: Patient doing well at this time. Continue monitoring for recurrent abdominal pain or reflux symptoms. Continue antiacids and Actigall. Follow-up 4 weeks. Check 3-month labs at that time. Continue increasing liquid intake and monitoring protein intake. Plan: Date: 04/14/24 Initial Weight: 92.986 kg Initial BMI: 37.5 Current Weight: 78.471 kg Current BMI: 31.6 Type of Surgery: Vertical Sleeve Gastrectomy Total Volume in Band: Previous Volume: Volume Removed: Volume Added: Band Size:
== END ==
LOC: BARWHC3 13:52
PROVIDERS: ATTEND Surgery
DX: E66.01 Morbid (severe) obesity due to excess calories (principal); K21.9 Gastro-esophageal reflux disease without esophagitis; R10.9 Unspecified abdominal pain; Z68.35 Body mass index [BMI] 35.0-35.9, adult; Z71.3 Dietary counseling and surveillance
CPT/HCPCS: 97803; G0463; 99211

== ENCOUNTER 2024-05-09 16:44 | Inpatient (IN) | payer OTHER ==
[2024-05-09] MEDS: SODIUM CHLORIDE 0.9% 1,000 ML IV STA (17:40)
[2024-05-09] MEDS: ONDANSETRON 4 MG/2 ML VIAL IVP STA (17:40)
[2024-05-09] MEDS: HYDROmorphone 0.5 MG/0.5 ML SYRINGE IVP STA (17:41)
--- NOTE | 2024-05-09 17:43 | ED ---
General Adult HPI - General Chief complaint: Abdominal Pain Stated complaint: Abdominal Pain Time Seen by Provider: 05/09/24 17:12 Source: patient, RN notes reviewed, old records reviewed Mode of arrival: ambulatory Limitations: no limitations - History of Present Illness Initial comments: 44-year-old female presenting with upper abdominal pain, lower chest pain. Pain is in the epigastrium and right upper quadrant. Associated with nausea and diarrhea. No vomiting. No fever. Pain has been present for the past several hours. Pain began approximately 2 hours after eating. Patient had gastric sleeve performed in January of this year. - Related Data Home Medications Medication Instructions Recorded Confirmed Albuterol Sulfate [Ventolin HFA] 1 - 2 puff INHALATION RT-QID PRN 08/21/23 04/14/24 amLODIPine [Norvasc] 10 mg PO DAILY 08/21/23 04/14/24 methIMAzole 20 mg PO DAILY 08/21/23 04/14/24 Metoprolol Succinate (ER) [Toprol 25 mg PO HS 09/19/23 04/14/24 Xl] ursodioL [Actigall] 300 mg PO BID 03/27/24 04/14/24 Allergies Allergy/AdvReac Type Severity Reaction Status Date / Time No Known Allergies Allergy Verified 05/09/24 17:10 Review of Systems ROS Statement: Those systems with pertinent positive or pertinent negative responses have been documented in the HPI. ROS Other: All systems not noted in ROS Statement are negative. Past Medical History Past Medical History: Hypertension, Pneumonia, Thyroid Disorder Additional Past Medical History / Comment(s): hyperthyroid, gestational diabetes History of Any Multi-Drug Resistant Organisms: None Reported Past Surgical History: Bariatric Surgery, Tubal Ligation, Uterine Ablation Additional Past Surgical History / Comment(s): Sleeve Gastrectomy 01-27-24 Additional Past Anesthesia/Blood Transfusion Reaction / Comment(s): pt. reports dizziness and "hard to wake up" after tubal Past Psychological History: No Psychological Hx Reported Smoking Status: Former smoker Past Alcohol Use History: Occasional Past Drug Use History: None Reported - Past Family History Mother Family Medical History: Cancer Additional Family Medical History / Comment(s): breast General Exam Limitations: no limitations General appearance: alert, in no apparent distress Head exam: Present: atraumatic, normocephalic Eye exam: Present: normal appearance ENT exam: Present: normal exam Neck exam: Present: normal inspection. Absent: tenderness, meningismus Respiratory exam: Present: normal lung sounds bilaterally. Absent: respiratory distress, wheezes Cardiovascular Exam: Present: regular rate, normal rhythm GI/Abdominal exam: Present: soft, tenderness (Epigastric and right upper quadrant). Absent: distended, guarding, rebound, rigid Neurological exam: Present: alert, oriented X3 Psychiatric exam: Present: normal affect, normal mood Skin exam: Present: warm, dry, intact Course Vital Signs 05/09/24 17:07 Temperature 98.7 F Pulse Rate 82 Respiratory 20 Rate Blood Pressure 149/80 O2 Sat by Pulse 99 Oximetry Medical Decision Making - Medical Decision Making Was pt. sent in by a medical professional or institution (, PA, GAME ENGINEER, urgent care, hospital, or fdc...) When possible be specific @ -No Did you speak to anyone other than the patient for history (EMS, parent, family, police, friend...)? What history was obtained from this source @ -No Did you review nursing and triage notes (agree or disagree)? Why? @ -I reviewed and agree with nursing and triage notes Were old charts reviewed (outside hosp., previous admission, EMS record, old EKG, old radiological studies, urgent care reports/EKG's, fdc records)? Report findings @ -No old charts were reviewed Differential Abdominal Pain Women: Appendicitis, Cholecystitis, diverticulosis, ischemic bowel, pancreatitis, hepatitis, UTI, gastroenteritis, AAA, incarcerated hernia, bowel obstruction, constipation, inflammatory bowel, hepatitis, peptic ulcer disease, splenic infarction, perforated viscus, vulvitis, ovarian torsion, PID, kidney stone, placenta abruption, this is not meant to be an all-inclusive list EKG interpreted by me (3pts min.). @Sinus rhythm, rate of 66, PA interval 137, QRS duration 89, QTc [address] segment elevation. X-rays interpreted by me (1pt min.). @ -None done CT interpreted by me (1pt min.). @ -None done U/S interpreted by me (1pt. min.). @ -None done What testing was considered but not performed or refused? (CT, X-rays, U/S, labs)? Why? @ -None What meds were considered but not given or refused? Why? @ -None Did you discuss the management of the patient with other professionals (professionals i.e. DrRosalie, PA, GAME ENGINEER, lab, RT, psych nurse, social media specialist, gluing machine adjuster, teacher, chief green officer, human services case manager)? Give summary @Case discussed with Dr. Haque who is familiar with the patient. The patient will be admitted to primary care provider Dr. De La Cruz with Dr. Haque on consult. Dr. Hardy informed of consult. Was smoking cessation discussed for >3mins.? @ -No Was critical care preformed (if so, how long)? @ -No Were there social determinants of health that impacted care today? How? (Homelessness, low income, unemployed, alcoholism, drug addiction, transportation, low edu. Level, literacy, decrease access to med. care, correction, rehab)? @ -No Was there de-escalation of care discussed even if they declined (Discuss DNR or withdrawal of care, Hospice)? DNR status @ -No What co-morbidities impacted this encounter? (DM, HTN, Smoking, COPD, CAD, C ancer, CVA, ARF, Chemo, Hep., AIDS, mental health diagnosis, sleep apnea, morbid obesity)? @ -[Gastric sleeve Was patient admitted / discharged? Hospital course, mention meds given and route, prescriptions, significant lab abnormalities, going to OR and other pertinent info. @44-year-old female presenting with epigastric and right upper quadrant abdominal pain. Patient is afebrile with stable vitals. Laboratory testing is obtained which reveals a normal CBC without leukocytosis, stable hemoglobin. Patient has a CMP showing a very mild transaminitis without elevation in bilirubin or alkaline phosphatase. Normal lactic acid. Ultrasound shows 2 gallstones within the gallbladder no secondary signs of acute cholecystitis. The common bile duct is mildly dilated as well. The patient's presentation and workup is discussed with Dr. Haque, will observe overnight for repeat laboratory testing, pain control and reevaluation. Undiagnosed new problem with uncertain prognosis? @ -No Drug Therapy requiring intensive monitoring for toxicity (Heparin, Nitro, Insulin, Cardizem)? @ -No Were any procedures done? @ -No Diagnosis/symptom? @ -[Biliary colic, abdominal pain Acute, or Chronic, or Acute on Chronic? @ -Acute Uncomplicated (without systemic symptoms) or Complicated (systemic symptoms)? @ -Default Side effects of treatment? @ -No Exacerbation, Progression, or Severe Exacerbation? @ -No Poses a threat to life or bodily function? How? (Chest pain, [place], [place], pneumonia, PE, COPD, DKA, ARF, appy, cholecystitis, CVA, Diverticulitis, Homicidal, Suicidal, threat to staff... and all critical care pts) @Low risk at this time - Lab Data Result diagrams: 05/09/24 17:34 05/09/24 17:34 Lab Results 05/09/24 05/09/24 05/09/24 Range/Units 17:34 17:34 17:34 WBC 9.8 (3.8-10.6) k/uL RBC 5.26 (3.80-5.40) m/uL Hgb 13.2 (11.4-16.0) gm/dL Hct 42.4 (34.0-46.0) % MCV 80.5 (80.0-100.0) fL MCH 25.1 (25.0-35.0) pg MCHC 31.1 (31.0-37.0) g/dL RDW 16.8 H (11.5-15.5) % Plt Count 299 (150-450) k/uL MPV 7.9 Neutrophils % 66 % Lymphocytes % 26 % Monocytes % 5 % Eosinophils % 1 % Basophils % 0 % Neutrophils # 6.5 (1.3-7.7) k/uL Lymphocytes # 2.6 (1.0-4.8) k/uL Monocytes # 0.5 (0-1.0) k/uL Eosinophils # 0.1 (0-0.7) k/uL Basophils # 0.0 (0-0.2) k/uL Hypochromasia Moderate Anisocytosis Slight Microcytosis Slight PT 11.2 (10.0-12.5) sec INR 1.0 (<1.2) APTT 21.1 L (22.0-30.0) sec Sodium 142 (137-145) mmol/L Potassium 3.1 L (3.5-5.1) mmol/L Chloride 105 (98-107) mmol/L Carbon Dioxide 27 (22-30) mmol/L Anion Gap 10 mmol/L BUN 7 (7-17) mg/dL Creatinine 0.62 (0.52-1.04) mg/dL Est GFR (CKD-EPI)AfAm >90 (>60 ml/min/1.73 sqM) Est GFR (CKD-EPI)NonAf >90 (>60 ml/min/1.73 sqM) Glucose 122 H (74-99) mg/dL Plasma Lactic Acid Nahum (0.7-2.0) mmol/L Calcium 9.0 (8.4-10.2) mg/dL Total Bilirubin 0.7 (0.2-1.3) mg/dL AST 97 H (14-36) U/L ALT 40 H (4-34) U/L Alkaline Phosphatase 99 (38-126) U/L Troponin I (0.000-0.034) ng/mL Total Protein 7.5 (6.3-8.2) g/dL Albumin 4.2 (3.5-5.0) g/dL Amylase 77 (30-110) U/L Lipase 264 (23-300) U/L 05/09/24 05/09/24 Range/Units 17:34 17:34 WBC (3.8-10.6) k/uL RBC (3.80-5.40) m/uL Hgb (11.4-16.0) gm/dL Hct (34.0-46.0) % MCV (80.0-100.0) fL MCH (25.0-35.0) pg MCHC (31.0-37.0) g/dL RDW (11.5-15.5) % Plt Count (150-450) k/uL MPV Neutrophils % % Lymphocytes % % Monocytes % % Eosinophils % % Basophils % % Neutrophils # (1.3-7.7) k/uL Lymphocytes # (1.0-4.8) k/uL Monocytes # (0-1.0) k/uL Eosinophils # (0-0.7) k/uL Basophils # (0-0.2) k/uL Hypochromasia Anisocytosis Microcytosis PT (10.0-12.5) sec INR (<1.2) APTT (22.0-30.0) sec Sodium (137-145) mmol/L Potassium (3.5-5.1) mmol/L Chloride (98-107) mmol/L Carbon Dioxide (22-30) mmol/L Anion Gap mmol/L BUN (7-17) mg/dL Creatinine (0.52-1.04) mg/dL Est GFR (CKD-EPI)AfAm (>60 ml/min/1.73 sqM) Est GFR (CKD-EPI)NonAf (>60 ml/min/1.73 sqM) Glucose (74-99) mg/dL Plasma Lactic Acid Nahum 1.7 (0.7-2.0) mmol/L Calcium (8.4-10.2) mg/dL Total Bilirubin (0.2-1.3) mg/dL AST (14-36) U/L ALT (4-34) U/L Alkaline Phosphatase (38-126) U/L Troponin I <0.012 (0.000-0.034) ng/mL Total Protein (6.3-8.2) g/dL Albumin (3.5-5.0) g/dL Amylase (30-110) U/L Lipase (23-300) U/L Disposition Clinical Impression: Abdominal pain, Gallstones, Biliary colic Disposition: ADMITTED IP TO THIS HOSP Condition: Stable Is patient prescribed a controlled substance at d/c from ED?: No Referrals: Andrea De La Cruz MD [Primary Care Provider] - 1-2 days Time of Disposition: 20:56
[2024-05-09 17:53] LABS: Anisocytosis Slight; Basophils % (A) 0 %; Eosinophils # (A) 0.1 k/uL (0-0.7); Eosinophils % (A) 1 %; HCT 42.4 % (34.0-46.0); HGB 13.2 gm/dL (11.4-16.0); Hypochromasia Moderate; Lymphocytes # (A) 2.6 k/uL (1.0-4.8); Lymphocytes % (A) 26 %; MCH 25.1 pg (25.0-35.0); MCHC 31.1 g/dL (31.0-37.0); MCV 80.5 fL (80.0-100.0); Mean Platelet Volume 7.9; Microcytosis Slight; Monocytes # (A) 0.5 k/uL (0-1.0); Monocytes % (A) 5 %; Neutrophils # (A) 6.5 k/uL (1.3-7.7); Neutrophils % (A) 66 %; Platelet Count 299 k/uL (150-450); RBC 5.26 m/uL (3.80-5.40); RDW 16.8 % (11.5-15.5); WBC 9.8 k/uL (3.8-10.6)
[2024-05-09 18:03] LABS: ALT 40 U/L (4-34); AST 97 U/L (14-36); African American GFR (CKD) >90 (>60 ml/min/1.73 sqM); Albumin 4.2 g/dL (3.5-5.0); Alkaline Phosphatase 99 U/L (38-126); Amylase 77 U/L (30-110); Anion Gap 10 mmol/L; Blood Urea Nitrogen 7 mg/dL (7-17); Carbon Dioxide 27 mmol/L (22-30); Chloride 105 mmol/L (98-107); Glucose 122 mg/dL (74-99); Lipase 264 U/L (23-300); Non-African American GFR(CKD) >90 (>60 ml/min/1.73 sqM); Potassium 3.1 mmol/L (3.5-5.1); Sodium 142 mmol/L (137-145); Total Bilirubin 0.7 mg/dL (0.2-1.3); Total Protein 7.5 g/dL (6.3-8.2)
[2024-05-09 18:07] LABS: Partial Thromboplastin Time 21.1 sec (22.0-30.0); Prothrombin Time 11.2 sec (10.0-12.5)
--- NOTE | 2024-05-09 19:14 | US ---
EXAMINATION TYPE: US gallbladder DATE OF EXAM: 05/09/2024 COMPARISON: NONE CLINICAL INDICATION: Female, 44 years old with history of epigastric and right upper quadrant pain; a bdominal pain, ate 4 hours prior to scan, h/o recent gastric sleeve TECHNIQUE: Grayscale and color Doppler imaging of the right upper quadrant was performed. FINDINGS: EXAM MEASUREMENTS: Liver Length: 18.2 cm Gallbladder Wall: 0.1 cm CBD: 0.7-1.0 cm Right Kidney: 10.2 x 4.9 x 4.3 cm Pancreas: Only a small portion of the pancreatic body is seen. Remainder is obscured by bowel gas sh adowing. Liver: Mildly enlarged but with normal homogeneous appearance. Gallbladder: 2 small dependent stones measuring up to 6 mm. No hydropic change, wall thickening, or surrounding fluid. Evidence for sonographic Fernandez's sign: no CBD: dilated to 1.0 closer to hepatic duct, 0.7cm near pancreatic head Right Kidney: wnl IMPRESSION: 1. A couple gallstones measuring up to 6 mm. 2. Bile duct dilated up to 1.1 cm. Correlate with alkaline phosphatase and bilirubin levels to exclud e biliary obstruction such as from choledocholithiasis. [facility], , 05/09/2024 7:12 PM
[2024-05-09] MEDS: POTASSIUM CHLORIDE 10 MEQ in WATER FOR INJECTION 1 100ML.BAG IVPB SCH (20:31)
[2024-05-09] MEDS ORDERED: NALOXONE 0.4 MG/ML 1 ML VIAL IV PRN (20:52)
[2024-05-09 21:15] LABS: Amorphous Sediment,Urine Rare /hpf; Appearance,Urine Cloudy (Clear); Bacteria,Urine Rare /hpf; Bilirubin,Urine Negative (Negative); Blood,Urine Negative (Negative); Calcium Oxalate Crystals,Urine Few /hpf; Color,Urine Yellow; Glucose,Urine (UA) Negative (Negative); Hyaline Casts,Urine 8 /lpf (0-2); Ketones,Urine Trace (Negative); Leukocyte Esterase,Urine Negative (Negative); Mucus,Urine Few /hpf; Nitrite,Urine Negative (Negative); Protein,Urine Negative (Negative); RBC,Urine 1 /hpf (0-5); Specific Gravity,Urine 1.023 (1.001-1.035); Squamous Epithelial Cell,Urine 12 /hpf (0-4); Urobilinogen,Urine <2.0 mg/dL (<2.0); WBC,Urine 2 /hpf (0-5)
[2024-05-09] MEDS: SODIUM CHLORIDE 0.9% 1,000 ML IV SCH (21:29)
[2024-05-09] MEDS: HYDROmorphone 0.5 MG/0.5 ML SYRINGE IVP PRN (21:29)
[2024-05-10] MEDS: IOPAMIDOL CONTRAST (ORAL USE) VIAL PO PRN (14:30)
--- NOTE | 2024-05-10 15:12 | CT ---
EXAMINATION TYPE: CT abdomen pelvis w con DATE OF EXAM: 05/10/2024 2:56 PM COMPARISON: Previous CT abdomen/pelvis study 03/03/2024. CLINICAL INDICATION: Female, 44 years old with history of abd pain; Abdominal pain TECHNIQUE: Axial CT abdomen pelvis w con;Sagittal and coronal reformats were created on a separate w orkstation. Contrast used:100ml mL of Isovue 300 with IV Contrast, (none if empty) Oral contrast used: with Oral Contrast (none if empty) CT DLP: 879.5 mGycm, Automated exposure control for dose reduction was used. FINDINGS: LOWER CHEST: Unremarkable ABDOMEN LIVER: Small hypodense lesion in the right hepatic lobe which is too small accurately characterize. GALLBLADDER AND BILE DUCTS: Nonspecific mild bladder wall thickening/edema which could be related to underdistention, consider further evaluation with right upper quadrant ultrasound if clinically warra nted. PANCREAS: Unremarkable. SPLEEN: Unremarkable. ADRENAL GLANDS: Unremarkable. KIDNEYS AND URETERS: No evidence of hydronephrosis or renal calculus. The ureters are unremarkable. PELVIS BLADDER: No evidence for wall thickening or mass given limitations of exam. REPRODUCTIVE: Uterus unremarkable. Ligament changes of the ovaries with largest left ovarian dominant follicle measuring 2.9 cm. ABDOMEN & PELVIS STOMACH AND BOWEL: Previously gastrectomy. No evidence of bowel obstruction. PERITONEUM/RETROPERITONEUM: No evidence of pneumoperitoneum or free fluid. VASCULATURE: No evidence of aortic aneurysm. MUSCULOSKELETAL: No acute osseous abnormalities LYMPH NODES: No gross evidence for lymphadenopathy. SOFT TISSUE/ABDOMINAL WALL: Fat containing supraumbilical and periumbilical hernias. IMPRESSION: No acute abnormality in abdomen/pelvis or CT findings to explain reported symptoms. [facility], , 05/10/2024 3:10 PM
[2024-05-10 15:40] LABS: Anisocytosis Slight; Basophils % (A) 0 %; Eosinophils # (A) 0.2 k/uL (0-0.7); Eosinophils % (A) 3 %; HCT 37.6 % (34.0-46.0); HGB 11.4 gm/dL (11.4-16.0); Hypochromasia Slight; Lymphocytes # (A) 2.1 k/uL (1.0-4.8); Lymphocytes % (A) 32 %; MCH 24.3 pg (25.0-35.0); MCHC 30.3 g/dL (31.0-37.0); Mean Platelet Volume 8.7; Microcytosis Slight; Monocytes # (A) 0.3 k/uL (0-1.0); Monocytes % (A) 4 %; Neutrophils # (A) 3.9 k/uL (1.3-7.7); Neutrophils % (A) 59 %; Platelet Count 255 k/uL (150-450); RDW 16.9 % (11.5-15.5); WBC 6.6 k/uL (3.8-10.6)
[2024-05-10 16:04] LABS: ALT 41 U/L (4-34); AST 40 U/L (14-36); African American GFR (CKD) >90 (>60 ml/min/1.73 sqM); Albumin 3.3 g/dL (3.5-5.0); Albumin/Globulin Ratio 1.1; Alkaline Phosphatase 77 U/L (38-126); Anion Gap 11 mmol/L; Blood Urea Nitrogen 3 mg/dL (7-17); Calcium 8.7 mg/dL (8.4-10.2); Carbon Dioxide 22 mmol/L (22-30); Chloride 112 mmol/L (98-107); Glucose 100 mg/dL (74-99); Non-African American GFR(CKD) >90 (>60 ml/min/1.73 sqM); Sodium 145 mmol/L (137-145); Total Bilirubin 0.4 mg/dL (0.2-1.3); Total Protein 6.3 g/dL (6.3-8.2)
--- NOTE | 2024-05-10 16:12 | P.GSCN ---
History of Present Illness Consult date: 05/10/24 History of present illness: CHIEF COMPLAINT: Symptomatic gallstones HISTORY OF PRESENT ILLNESS: The patient is a 44-year-old female who is status post sleeve gastrectomy 01/27/2024, 4 months ago. Patient had a leak and was transferred to outside facility where stent placement was performed. Patient was on Actigall 300 mg twice daily for over a month however she discontinued for the past 1 to 2 weeks due to recent pneumonia. Patient denies any prior attack of epigastric and right upper quadrant abdominal pain. She was eating a fatty meal where within 1 to 3 hours she had acute onset abdominal pain with presentation to the emergency room. At this time, she is tolerating full liquid diet "I am hungry." PAST MEDICAL HISTORY: See list and reviewed PAST SURGICAL HISTORY: See list and reviewed MEDICATIONS: See list and reviewed ALLERGIES: See list and reviewed SOCIAL HISTORY: See list and reviewed FAMILY HISTORY: See list and reviewed REVIEW OF ORGAN SYSTEMS: CONSTITUTIONAL: No fevers or chills. Recent intentional weight loss from sleeve gastrectomy. EYES: Denies any trouble with vision. No glasses. HEENT: No difficulties with hearing. No nosebleeds. No difficulty swallowing. RESPIRATORY: Denies pneumonia. Denies any troubles with breathing or dyspnea on exertion. CARDIOVASCULAR: Denies any chest pain, palpitations, or recent heart attacks. GASTROINTESTINAL: Gastroesophageal reflux disease. Status post sleeve gastrectomy with leak treated with stent. GENITOURINARY: Denies any blood in urine or increased urinary frequency. NEUROLOGICAL: Denies any numbness or tingling along the distal extremities. No seizure disorders or headaches. MUSCULOSKELETAL: Denies any back pain, stiffness or joint arthritis. SKIN: No current skin cancer. No rash. PSYCHIATRIC: Denies current depression or suicidal thoughts. ENDOCRINE: Denies current thyroid disorders. Denies any blood sugar glucose intolerance. HEME/LYMPHATIC: Denies any lumps and bumps around the neck. No recent deep venous thrombosis. ALLERGY/IMMUNOLOGY: No immunoglobulin therapy. No immune deficiencies. BREAST: Denies current breast lumps, pain or nipple discharge. PHYSICAL EXAM: VITALS: Reviewed CONSTITUTIONAL: Well developed and in no acute distress. EYES: Conjuctivae without sclera icterus. Extraocular movements grossly intact. HEAD, EARS, NOSE, THROAT: Moist buccal mucosa. Head is atraumatic, normocephalic. Hears conversational speech. No nasal drainage. NECK: Supple. No JV distention. No thyroidomegaly. RESPIRATORY: Non-labored respirations and equal bilateral excursions. No gross wheezes. CARDIOVASCULAR: Palpable 2+ radial pulses. ABDOMEN: Obese. Nontender. LYMPH: No neck lymphadenopathy. MUSCULOSKELETAL: No clubbing cyanosis or edema SKIN: Warm and well perfused with good skin turgor. NEUROLOGIC: Cranial nerves II through XII grossly intact. No focal or lateralizing signs. PSYCH: Appropriate affect. Alert and oriented to person, place and time. Displays appropriate insight. CLINCAL LABS: Reviewed. LFTs elevated AST ALT 97 and 40 respectively. WBC within normal limits. IMAGING: Independently reviewed. Ultrasound of the gallbladder independently reviewed demonstrates at least 3 or 4 mobile gallstones. No gallbladder wall thickening noted. This is my independent interpretation. RECORDS: previous old records reviewed from January 2024 for sleeve gastrectomy. ASSESSMENT: 1. Right upper quadrant abdominal pain due to symptomatic gallstones. 2. 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 Elevated LFTs due to symptomatic gallstones PLAN: 1. Patient requesting increased diet however dietary surveillance and counseling with low-fat diet were described in detail including avoiding male, high fatty foods. Low-fat diet ordered. 2. Due to patient's complicated surgical history of sleeve gastrectomy with leak, conservative management was described however to be determined by Dr. Haque. Thank you for this kind consultation. Past Medical History Past Medical History: Hypertension, Pneumonia, Thyroid Disorder Additional Past Medical History / Comment(s): hyperthyroid, gestational diabetes History of Any Multi-Drug Resistant Organisms: None Reported Past Surgical History: Bariatric Surgery, Tubal Ligation, Uterine Ablation Additional Past Surgical History / Comment(s): Sleeve Gastrectomy 01-27-24 Additional Past Anesthesia/Blood Transfusion Reaction / Comm: pt. reports dizziness and "hard to wake up" after tubal Past Psychological History: No Psychological Hx Reported Smoking Status: Former smoker Past Alcohol Use History: Occasional Additional Past Alcohol Use History / Comment(s): quit smoking 2008 Past Drug Use History: None Reported - Past Family History Mother Family Medical History: Cancer Additional Family Medical History / Comment(s): breast Medications and Allergies Home Medications Medication Instructions Recorded Confirmed Type Amoxic-Pot Clav 875-125Mg 1 tab PO Q12HR 05/10/24 05/10/24 History [Augmentin 875-125] Ondansetron Odt [Zofran Odt] 4 mg PO Q8H PRN 05/10/24 05/10/24 History Pantoprazole [Protonix] 40 mg PO DAILY 05/10/24 05/10/24 History predniSONE [Deltasone] 40 mg PO DAILY 05/10/24 05/10/24 History Allergies Allergy/AdvReac Type Severity Reaction Status Date / Time No Known Allergies Allergy Verified 05/10/24 10:29 Surgical - Exam Vital Signs Temp Pulse Resp BP Pulse Ox 98.7 F 82 20 149/80 99 05/09/24 17:07 05/09/24 17:07 05/09/24 17:07 05/09/24 17:07 05/09/24 17:07 Results - Labs 05/10/24 15:22 05/09/24 17:34 Abnormal Lab Results - Last 24 Hours (Table) 05/09/24 05/09/24 05/09/24 Range/Units 17:34 17:34 17:34 MCH (25.0-35.0) pg MCHC (31.0-37.0) g/dL RDW 16.8 H (11.5-15.5) % APTT 21.1 L (22.0-30.0) sec Potassium (3.5-5.1) mmol/L Glucose (74-99) mg/dL AST (14-36) U/L ALT (4-34) U/L Urine Appearance Cloudy H (Clear) Urine Ketones Trace H (Negative) Ur Squamous Epith Cells 12 H (0-4) /hpf Calcium Oxalate Crystal Few H (None) /hpf Amorphous Sediment Rare H (None) /hpf Urine Bacteria Rare H (None) /hpf Hyaline Casts 8 H (0-2) /lpf Urine Mucus Few H (None) /hpf 05/09/24 05/10/24 Range/Units 17:34 15:22 MCH 24.3 L (25.0-35.0) pg MCHC 30.3 L (31.0-37.0) g/dL RDW 16.9 H (11.5-15.5) % APTT (22.0-30.0) sec Potassium 3.1 L (3.5-5.1) mmol/L Glucose 122 H (74-99) mg/dL AST 97 H (14-36) U/L ALT 40 H (4-34) U/L Urine Appearance (Clear) Urine Ketones (Negative) Ur Squamous Epith Cells (0-4) /hpf Calcium Oxalate Crystal (None) /hpf Amorphous Sediment (None) /hpf Urine Bacteria (None) /hpf Hyaline Casts (0-2) /lpf Urine Mucus (None) /hpf Diabetes panel 05/09/24 Range/Units 17:34 Sodium 142 (137-145) mmol/L Potassium 3.1 L (3.5-5.1) mmol/L Chloride 105 (98-107) mmol/L Carbon Dioxide 27 (22-30) mmol/L BUN 7 (7-17) mg/dL Creatinine 0.62 (0.52-1.04) mg/dL Glucose 122 H (74-99) mg/dL Calcium 9.0 (8.4-10.2) mg/dL AST 97 H (14-36) U/L ALT 40 H (4-34) U/L Alkaline Phosphatase 99 (38-126) U/L Total Protein 7.5 (6.3-8.2) g/dL Albumin 4.2 (3.5-5.0) g/dL Calcium panel 05/09/24 Range/Units 17:34 Calcium 9.0 (8.4-10.2) mg/dL Albumin 4.2 (3.5-5.0) g/dL Pituitary panel 05/09/24 Range/Units 17:34 Sodium 142 (137-145) mmol/L Potassium 3.1 L (3.5-5.1) mmol/L Chloride 105 (98-107) mmol/L Carbon Dioxide 27 (22-30) mmol/L BUN 7 (7-17) mg/dL Creatinine 0.62 (0.52-1.04) mg/dL Glucose 122 H (74-99) mg/dL Calcium 9.0 (8.4-10.2) mg/dL Adrenal panel 05/09/24 Range/Units 17:34 Sodium 142 (137-145) mmol/L Potassium 3.1 L (3.5-5.1) mmol/L Chloride 105 (98-107) mmol/L Carbon Dioxide 27 (22-30) mmol/L BUN 7 (7-17) mg/dL Creatinine 0.62 (0.52-1.04) mg/dL Glucose 122 H (74-99) mg/dL Calcium 9.0 (8.4-10.2) mg/dL Total Bilirubin 0.7 (0.2-1.3) mg/dL AST 97 H (14-36) U/L ALT 40 H (4-34) U/L Alkaline Phosphatase 99 (38-126) U/L Total Protein 7.5 (6.3-8.2) g/dL Albumin 4.2 (3.5-5.0) g/dL
[2024-05-11 07:14] LABS: ALT 31 U/L (4-34); African American GFR (CKD) >90 (>60 ml/min/1.73 sqM); Albumin 2.8 g/dL (3.5-5.0); Anion Gap 5 mmol/L; Blood Urea Nitrogen 3 mg/dL (7-17); Calcium 8.2 mg/dL (8.4-10.2); Carbon Dioxide 24 mmol/L (22-30); Chloride 111 mmol/L (98-107); Globulin 2.8 g/dL; Glucose 86 mg/dL (74-99); Non-African American GFR(CKD) >90 (>60 ml/min/1.73 sqM); Sodium 140 mmol/L (137-145); Total Bilirubin 0.4 mg/dL (0.2-1.3); Total Protein 5.6 g/dL (6.3-8.2)
[2024-05-11 07:40] LABS: AST 30 U/L (14-36); Alkaline Phosphatase 59 U/L (38-126)
[2024-05-11 10:12] LABS: WBC 6.53 X 10*3/uL (4.50-10.00)
[2024-05-11 10:13] LABS: Basophils # (A) 0.03 X 10*3/uL (0.00-0.10); Basophils % (A) 0.5 %; Eosinophils # (A) 0.11 X 10*3/uL (0.04-0.35); Eosinophils % (A) 1.7 %; HCT 35.1 % (37.2-46.3); HGB 10.8 g/dL (12.0-15.0); Lymphocytes # (A) 2.48 X 10*3/uL (0.90-5.00); MCH 24.8 pg (27.0-32.0); MCHC 30.8 g/dL (32.0-37.0); MCV 80.5 FL (80.0-97.0); Monocytes # (A) 0.48 X 10*3/uL (0.20-1.00); Monocytes % (A) 7.4 %; NRBC Per 100 WBC 0 X 10*3/uL (0.00-0.01); Neutrophils # (A) 3.42 X 10*3/uL (1.80-7.70); Neutrophils % (A) 52.2 %; Platelet Count 266 X 10*3/uL (140-440); RBC 4.36 X 10*6/uL (4.10-5.20); RDW 17.2 % (11.5-14.5)
--- NOTE | 2024-05-11 11:00 | P.PN ---
Subjective Progress Note Date: 05/11/24 SURGICAL PROGRESS NOTE CHIEF COMPLAINT: Abdominal pain HISTORY OF PRESENT ILLNESS: Patient reports she is feeling better than on admission. However, she is still having tenderness in the right upper quadrant. No nausea or vomiting today. Afebrile. WBC 6.53 Hgb 10.8 total bilirubin 0.4 LFTs normalized. PHYSICAL EXAM: VITAL SIGNS: Reviewed. GENERAL: Well-developed in no acute distress. ABDOMEN: Soft. Nondistended. Tenderness to palpation to the right upper quadrant NEUROLOGIC: Alert and oriented. Cranial nerves II through XII grossly intact. ASSESSMENT: 1. Right upper quadrant abdominal pain due to symptomatic gallstones. 2. 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 Elevated LFTs due to symptomatic gallstones PLAN: -Patient is tentatively scheduled for laparoscopic, possible open cholecystectomy tomorrow with Dr. Haque depending on how she feels this af ternoon. If patient is feeling well and tolerating diet she could possibly be discharged later this afternoon with outpatient follow up. Physician Brim Cutter note has been reviewed by physician. Signing provider agrees with the documented findings, assessment, and plan of care. I have personally seen and examined the patient, reviewed the DEHYDRATION UNIT OPERATOR /PAs history, exam and MDM and agree with the assessment and plan as written. Based on total visit time, I have performed more than 50% of the visit. As above: Patient with suspected acute cholecystitis with possible recent choledocholithiasis. Pain is somewhat improved today. Will tentatively schedule for laparoscopic, possible open cholecystectomy tomorrow. If patient doing well later today may discharge and plan outpatient surgery. Patient is agreeable. Risks of bleeding, infection, bile leak, bile duct injury, retained common bile duct stone, trocar injury, conversion to an open procedure, hernia, anesthesia related complications were reviewed. The patient understands and wishes to proceed. Objective - Vital Signs Vital signs: Vital Signs Temp 97.8 F 05/11/24 08:00 Pulse 65 05/11/24 08:00 Resp 18 05/11/24 08:00 BP 136/79 05/11/24 08:00 Pulse Ox 99 05/11/24 08:00 FiO2 Intake & Output 05/10/24 05/11/24 05/11/24 18:59 06:59 18:59 Weight 74.389 kg Other: Voiding Method Toilet # Voids 5 3 - Labs CBC & Chem 7: 05/11/24 07:02 05/11/24 06:14 Labs: Abnormal Lab Results - Last 24 Hours (Table) 05/10/24 05/10/24 05/11/24 Range/Units 15:22 15:22 06:14 Hgb (12.0-15.0) g/dL Hct (37.2-46.3) % MCH 24.3 L (25.0-35.0) pg MCHC 30.3 L (31.0-37.0) g/dL RDW 16.9 H (11.5-15.5) % Chloride 112 H 111 H (98-107) mmol/L BUN 3 L 3 L (7-17) mg/dL Creatinine 0.47 L 0.43 L (0.52-1.04) mg/dL Glucose 100 H (74-99) mg/dL Calcium 8.2 L (8.4-10.2) mg/dL AST 40 H (14-36) U/L ALT 41 H (4-34) U/L Total Protein 5.6 L (6.3-8.2) g/dL Albumin 3.3 L 2.8 L (3.5-5.0) g/dL 05/11/24 Range/Units 07:02 Hgb 10.8 L (12.0-15.0) g/dL Hct 35.1 L (37.2-46.3) % MCH 24.8 L (25.0-35.0) pg MCHC 30.8 L (31.0-37.0) g/dL RDW 17.2 H (11.5-15.5) % Chloride (98-107) mmol/L BUN (7-17) mg/dL Creatinine (0.52-1.04) mg/dL Glucose (74-99) mg/dL Calcium (8.4-10.2) mg/dL AST (14-36) U/L ALT (4-34) U/L Total Protein (6.3-8.2) g/dL Albumin (3.5-5.0) g/dL
--- NOTE | 2024-05-11 12:04 | PN ---
PROGRESS NOTE DATE OF SERVICE: 05/10/2024 CHIEF COMPLAINT: Abdominal pain. HISTORY OF PRESENT ILLNESS: This lady is doing a bit better. Pain has improved. It looks as though this is related to the gallbladder. Her lipase is slightly elevated. PHYSICAL EXAMINATION: VITAL SIGNS: Normal. She is afebrile. HEAD, EARS, EYES, NOSE, MOUTH, AND THROAT: Normal. CHEST: Clear. CARDIAC: Normal. ABDOMEN: Slightly tender in the right upper quadrant. There are no masses. IMPRESSION: 1. Biliary disease and cholecystitis. 2. Elevated lipase. PLAN: Continue to follow laboratory studies, and abdominal findings while she is addressed by Surgery. MMODL / IJN: [id number] /
[2024-05-11] MEDS ORDERED: ONDANSETRON ODT 4 MG TAB PO PRN (12:07)
--- NOTE | 2024-05-11 12:58 | PN ---
PROGRESS NOTE DATE OF SERVICE: 05/11/2024 CHIEF COMPLAINT: Gallbladder disease. HISTORY OF PRESENT ILLNESS: This lady's pain is a little bit better. It sounds as though she is going to the operating room tomorrow. PHYSICAL EXAMINATION: VITAL SIGNS: Normal. CHEST: Clear. CARDIAC: Normal. ABDOMEN: She is still slightly tender in the epigastrium. IMPRESSION: 1. Cholecystitis and cholelithiasis. 2. Pancreatitis. 3. Hyperthyroidism. PLAN: Possibly surgery tomorrow. DOMINIK / MELYN: [id number] /
[2024-05-11 13:23] LABS: T4, Free (Free Thyroxine) 1.28 ng/dL (0.78-2.19)
[2024-05-11] MEDS: AMPICILLIN-SULBACTAM 1.5 GM in SODIUM CHLORIDE 0.9% 50 ML IVPB SCH (16:07)
[2024-05-12] MEDS: PANTOPRAZOLE 40 MG TABLET PO SCH (06:30)
[2024-05-12] MEDS: IV FLUID CONTINUATION 1,000 ML IV ONE (06:57)
[2024-05-12 07:11] LABS: Anisocytosis Slight; Basophils % (A) 0 %; Eosinophils # (A) 0.1 k/uL (0-0.7); Eosinophils % (A) 1 %; HCT 38.9 % (34.0-46.0); HGB 12.1 gm/dL (11.4-16.0); Hypochromasia Moderate; Lymphocytes # (A) 2.8 k/uL (1.0-4.8); Lymphocytes % (A) 37 %; MCH 24.9 pg (25.0-35.0); MCV 80.3 fL (80.0-100.0); Microcytosis Slight; Monocytes # (A) 0.4 k/uL (0-1.0); Monocytes % (A) 5 %; Neutrophils # (A) 4.1 k/uL (1.3-7.7); Neutrophils % (A) 55 %; Platelet Count 257 k/uL (150-450); RBC 4.85 m/uL (3.80-5.40); RDW 16.8 % (11.5-15.5); WBC 7.5 k/uL (3.8-10.6)
[2024-05-12] MEDS: HYDROCORTISONE SUCCINATE 100 MG/2 ML VIAL IV STA (07:15)
[2024-05-12] MEDS: FAMOTIDINE 20 MG/2 ML VIAL IV STA (07:19)
[2024-05-12] MEDS: ONDANSETRON 4 MG/2 ML VIAL IVP PRN (07:21)
[2024-05-12] MEDS: DEXAMETHASONE SOD PHOSPHATE 4 MG/ML 1 ML VIAL IVP STA (07:21)
[2024-05-12] MEDS: IPRATROPIUM-ALBUTEROL 3 ML NEB INHALATION STA (07:23)
[2024-05-12] MEDS: LACTATED RINGERS 1,000 ML BAG IV STA (07:27)
[2024-05-12] MEDS: SCOPOLAMINE 1 MG/72 HR PATCH TRANSDERM STA (07:28)
[2024-05-12 07:31] LABS: African American GFR (CKD) >90 (>60 ml/min/1.73 sqM); Anion Gap 2 mmol/L; Blood Urea Nitrogen 3 mg/dL (7-17); Calcium 8.2 mg/dL (8.4-10.2); Carbon Dioxide 31 mmol/L (22-30); Chloride 104 mmol/L (98-107); Glucose 85 mg/dL (74-99); Non-African American GFR(CKD) >90 (>60 ml/min/1.73 sqM); Potassium 3.2 mmol/L (3.5-5.1); Sodium 137 mmol/L (137-145)
[2024-05-12] MEDS: HEPARIN SODIUM,PORCINE 5,000 UNIT/ML 1 ML VIAL SQ STA (07:48)
[2024-05-12] MEDS: LIDOCAINE 1%-EPI 1:100,000 20 ML VIAL SQ ONE ×3 (07:50→09:23)
[2024-05-12] MEDS ORDERED: SUCCINYLCHOLINE CHLORIDE 200 MG/10 ML VIAL IV ONE (07:55)
[2024-05-12] MEDS ORDERED: ALBUTEROL HFA INHALER INHALATION ONE (07:55)
[2024-05-12] MEDS ORDERED: fentaNYL (PF) 50 MCG/ML 2 ML AMP ONE (07:55)
[2024-05-12] MEDS ORDERED: KETOROLAC 15 MG/ML 1 ML VIAL ONE (07:55)
[2024-05-12] MEDS ORDERED: LIDOCAINE 1% INJ 10MG/ML (20 ML MDV) ONE (07:55)
[2024-05-12] MEDS ORDERED: GLYCOPYRROLATE 0.2 MG/ML 2 ML VIAL ONE (07:55)
[2024-05-12] MEDS ORDERED: HYDROmorphone (PF) 1 MG/ML ONE (07:55)
[2024-05-12] MEDS ORDERED: MIDAZOLAM 2 MG/2 ML VIAL ONE (07:55)
[2024-05-12] MEDS ORDERED: METOPROLOL TARTRATE 5 MG/5 ML VIAL IVP ONE (07:55)
[2024-05-12] MEDS ORDERED: PROPOFOL 10 MG/ML 20 ML VIAL IV ONE (07:55)
[2024-05-12] MEDS ORDERED: ESMOLOL 100 MG/10 ML VIAL ONE (07:55)
[2024-05-12] MEDS ORDERED: ROCURONIUM 10 MG/ML (5 ML VIAL) IV ONE (07:55)
[2024-05-12] MEDS ORDERED: NEOSTIGMINE 1 MG/ML 10 ML VIAL ONE (07:55)
[2024-05-12] MEDS: LACTATED RINGERS 1,000 ML IV ONE (09:04)
[2024-05-12] MEDS ORDERED: IBUPROFEN 400 MG TAB PO PRN (09:27)
[2024-05-12] MEDS ORDERED: ACETAMINOPHEN TAB 325 MG TAB PO PRN (09:27)
[2024-05-12] MEDS ORDERED: IBUPROFEN 600 MG TAB PO PRN (09:32)
--- NOTE | 2024-05-12 09:34 | P.OP ---
Date of Procedure: 05/12/24 Procedure(s) Performed: PREOPERATIVE DIAGNOSIS: Acute cholecystitis POSTOPERATIVE DIAGNOSIS: Same with intra-abdominal adhesions PROCEDURE: Laparoscopic cholecystectomy with lysis of adhesions SURGEON: Garland EBL: 15 cc ANESTHESIA: Gen. COMPLICATIONS: None OPERATIVE PROCEDURE: The patient was brought and placed on the operating room table in the supine position. The patient was placed under general anesthesia at that time. The abdomen was prepped and draped in the usual sterile fashion. A small vertical infraumbilical incision was made. The fascia was grasped with the Eusebia forceps. The fascia was retracted anteriorly. The Veress needle was advanced into the peritoneal cavity. The saline drop test was normal. Insufflation took place up to 15 mmHg. A 5 mm optical trocar was advanced and the peritoneal cavity. The patient was noted to have adhesions throughout the abdomen. Thankfully our trocar was in a pocket superior to the omentum. An additional 5 mm trocar was placed in the left upper quadrant under direct visualization and through that trocar I was able to lyse the majority of adhesions that were somewhat flimsy throughout the abdominal cavity with a Kitner. There were some loculated fluid collections along the gutter on the right-hand side and also around the liver. These were suctioned. These appeared serous in nature. No keira abscess was seen. The liver margin was adherent to the omentum as well and this was able to be for the most part bluntly dissected. The patient's gallbladder was identified and edematous appearing. Careful blunt dissection revealed the entirety of the gallbladder. The infundibulum was able to be carefully dissected using blunt dissection. I was able to visualize both the cystic artery and the cystic duct. The cystic artery and the cystic duct were both divided after 12 mm clips were placed on the patient's side. The gallbladder was then removed from the liver bed using a combination of LigaSure, blunt dissection and electrocautery. The gallbladder was removed using an Endo Catch bag. There were multiple small stones present in the gallbladder a few of which seem to be impacted or located in the proximal cystic duct region. These were able to be milked back into the gallbladder during the procedure. I decided to place a drain in the gallbladder fossa from our most lateral 5 mm trocar site. This was sutured to the skin using a 3-0 silk stitch. The gallbladder fossa and abdomen was irrigated with saline. No b leeding was seen. The fascia at the 12 mm trocar site was closed using a Albert-Rolando 0 Vicryl stitch. Pneumoperitoneum was evacuated. Incision closure took place at all sites using 4-0 Monocryl sutures. Skin glue was applied. At the end of this procedure the sponge and needle counts were correct. DISPOSITION: Stable to the recovery room
[2024-05-12] MEDS: HYDROmorphone 0.5 MG/0.5 ML SYRINGE IVP PRN (10:53)
[2024-05-12] MEDS: LACTATED RINGERS 1,000 ML IV SCH (13:25)
[2024-05-12] MEDS: ONDANSETRON 4 MG/2 ML VIAL IVP ONE (13:25)
[2024-05-12] MEDS: POTASSIUM CHLORIDE ER 20 MEQ TAB.ER PO STA (13:25)
[2024-05-12] MEDS: DEXAMETHASONE SOD PHOSPHATE 4 MG/ML 1 ML VIAL IV ONE (13:25)
[2024-05-12] MEDS: HYDROcodone/APAP 5-325MG 1 EACH TAB PO PRN (22:21)
[2024-05-13 09:17] LABS: Anisocytosis Slight; Basophils % (A) 0 %; Eosinophils % (A) 0 %; HCT 39.7 % (34.0-46.0); HGB 12.1 gm/dL (11.4-16.0); Hypochromasia Slight; Lymphocytes # (A) 2.8 k/uL (1.0-4.8); Lymphocytes % (A) 27 %; MCH 24.6 pg (25.0-35.0); MCHC 30.5 g/dL (31.0-37.0); MCV 80.7 fL (80.0-100.0); Mean Platelet Volume 8.6; Microcytosis Slight; Monocytes # (A) 0.3 k/uL (0-1.0); Monocytes % (A) 3 %; Neutrophils # (A) 7.4 k/uL (1.3-7.7); Neutrophils % (A) 69 %; Platelet Count 242 k/uL (150-450); RBC 4.92 m/uL (3.80-5.40); RDW 17.2 % (11.5-15.5); WBC 10.7 k/uL (3.8-10.6)
[2024-05-13 09:34] LABS: ALT 25 U/L (4-34); AST 20 U/L (14-36); African American GFR (CKD) >90 (>60 ml/min/1.73 sqM); Albumin 3.4 g/dL (3.5-5.0); Albumin/Globulin Ratio 1.2; Alkaline Phosphatase 94 U/L (38-126); Anion Gap 7 mmol/L; Blood Urea Nitrogen 3 mg/dL (7-17); Calcium 8.7 mg/dL (8.4-10.2); Carbon Dioxide 28 mmol/L (22-30); Chloride 102 mmol/L (98-107); Globulin 2.9 g/dL; Glucose 117 mg/dL (74-99); Non-African American GFR(CKD) >90 (>60 ml/min/1.73 sqM); Potassium 3.3 mmol/L (3.5-5.1); Sodium 137 mmol/L (137-145); Total Bilirubin 0.3 mg/dL (0.2-1.3); Total Protein 6.3 g/dL (6.3-8.2)
[2024-05-13] MEDS: POTASSIUM CHLORIDE ER 20 MEQ TAB.ER PO STA (12:17)
[2024-05-13] MEDS: KETOROLAC 15 MG/ML 1 ML VIAL IVP SCH (12:17)
--- NOTE | 2024-05-13 13:23 | P.PN ---
Subjective Progress Note Date: 05/13/24 SURGICAL PROGRESS NOTE CHIEF COMPLAINT: Abdominal pain HISTORY OF PRESENT ILLNESS: Patient is postop day #1 status post laparoscopic cholecystectomy and lysis of adhesions. Patient does complain of pain at the epigastric incision site. She denies any nausea or vomiting. She is having flatus. RENA drain with 50 mL serosanguineous output last night and 10 mL output this morning. Afebrile. WBC 10.7 Hgb 12.1 potassium is 3.3 creatinine 0.51 magnesium 2.0 LFTs normal PHYSICAL EXAM: VITAL SIGNS: Reviewed. GENERAL: Well-developed in no acute distress. ABDOMEN: Soft. Nondistended. Tenderness to palpation to the right upper quadrant NEUROLOGIC: Alert and oriented. Cranial nerves II through XII grossly intact. ASSESSMENT: 1. Acute cholecystitis 2. 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 Elevated LFTs due to symptomatic gallstones. Now improved 4. Hypokalemia PLAN: -Continue low-fat diet -Toradol added for pain management -Continue to monitor RENA drain -Encourage patient to ambulate -Incentive spirometer ordered -Anticipate possible discharge tomorrow -Replace potassium Physician Cook Room Supervisor note has been reviewed by physician. Signing provider agrees with the documented findings, assessment, and plan of care. Objective - Vital Signs Vital signs: Vital Signs Temp 98.6 F 05/13/24 07:33 Pulse 67 05/13/24 08:45 Resp 18 05/13/24 08:45 BP 131/84 05/13/24 07:33 Pulse Ox 97 05/13/24 07:33 FiO2 Intake & Output 05/12/24 05/13/24 05/13/24 18:59 06:59 18:59 Intake Total 1300 Output Total 60 10 Balance 1240 -10 Intake: IV 1300 Output: Drainage 50 10 Right Abdomen 50 10 Estimated Blood Loss 10 Other: Voiding Method Toilet Toilet # Voids 1 2 1 - Labs CBC & Chem 7: 05/13/24 08:26 05/13/24 08:26 Labs: Abnormal Lab Results - Last 24 Hours (Table) 05/13/24 05/13/24 Range/Units 08:26 08:26 WBC 10.7 H (3.8-10.6) k/uL MCH 24.6 L (25.0-35.0) pg MCHC 30.5 L (31.0-37.0) g/dL RDW 17.2 H (11.5-15.5) % Potassium 3.3 L (3.5-5.1) mmol/L BUN 3 L (7-17) mg/dL Creatinine 0.51 L (0.52-1.04) mg/dL Glucose 117 H (74-99) mg/dL Albumin 3.4 L (3.5-5.0) g/dL
[2024-05-14 09:27] LABS: BUN/Creat Ratio <8.75 Ratio (12.00-20.00); Blood Urea Nitrogen <3.5 mg/dL (9.0-27.0); Calcium 7.9 mg/dL (8.7-10.3); Carbon Dioxide 25.9 mmol/L (21.6-31.8); Chloride 108 mmol/L (96-109); Glucose 90 mg/dL (70-110); Potassium 3.4 mmol/L (3.5-5.5); Sodium 141 mmol/L (135-145)
[2024-05-14] MEDS: DOCUSATE 100 MG CAP PO SCH (12:48)
[2024-05-14] MEDS: traMADol 50 MG TAB PO PRN (12:48)
--- NOTE | 2024-05-14 14:05 | P.PN ---
Subjective Progress Note Date: 05/14/24 SURGICAL PROGRESS NOTE CHIEF COMPLAINT: Abdominal pain HISTORY OF PRESENT ILLNESS: Patient is postop day #2 status post laparoscopic cholecystectomy and lysis of adhesions. Patient complained of nausea this morning and decreased appetite. She is having flatus. Denies any difficulty urinating. She reports it has been several days since her last bowel movement. RENA drain serosanguineous 20 mL output. Afebrile. Potassium 3.4 magnesium 2.0 PHYSICAL EXAM: VITAL SIGNS: Reviewed. GENERAL: Well-developed in no acute distress. ABDOMEN: Soft. Nondistended. Tenderness to palpation to the right upper quadrant NEUROLOGIC: Alert and oriented. Cranial nerves II through XII grossly intact. ASSESSMENT: 1. Acute cholecystitis 2. 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 Elevated LFTs due to symptomatic gallstones. Now improved 4. Hypokalemia PLAN: -Continue low-fat diet -Continue to monitor -Encourage patient to ambulate -Replace potassium -Continue antiemetics as needed -Colace added for constipation -Anticipate discharge tomorrow Physician Bottled Beverage Inspector note has been reviewed by physician. Signing provider agrees with the documented findings, assessment, and plan of care. Objective - Vital Signs Vital signs: Vital Signs Temp 98.6 F 05/14/24 13:23 Pulse 71 05/14/24 13:23 Resp 17 05/14/24 13:23 BP 126/83 05/14/24 13:23 Pulse Ox 100 05/14/24 13:23 FiO2 Intake & Output 05/13/24 05/14/24 05/14/24 18:59 06:59 18:59 Output Total 20 Balance -20 Output: Drainage 20 Right Abdomen 20 Other: Voiding Method Toilet Toilet # Voids 3 2 - Labs CBC & Chem 7: 05/13/24 08:26 05/14/24 06:04 Labs: Abnormal Lab Results - Last 24 Hours (Table) 05/14/24 Range/Units 06:04 Potassium 3.4 L (3.5-5.5) mmol/L BUN <3.5 L (9.0-27.0) mg/dL Creatinine 0.4 L (0.6-1.5) mg/dL BUN/Creatinine Ratio <8.75 L (12.00-20.00) Ratio Calcium 7.9 L (8.7-10.3) mg/dL
[2024-05-14] MEDS: POTASSIUM CHLORIDE ER 20 MEQ TAB.ER PO STA (16:18)
--- NOTE | 2024-05-14 20:10 | PN ---
PROGRESS NOTE DATE OF SERVICE: 05/12/2024 CHIEF COMPLAINT: Gallbladder disease. HISTORY OF PRESENT ILLNESS: This lady is going for a cholecystectomy. PHYSICAL EXAMINATION: VITAL SIGNS: Normal. CHEST: Clear. CARDIAC: Exam is normal. ABDOMEN: Slightly protuberant. IMPRESSION: Cholelithiasis. PLAN: Cholecystectomy. MMODL / IJN: [id number] /
--- NOTE | 2024-05-14 20:16 | PN ---
PROGRESS NOTE DATE OF SERVICE: 05/13/2024 CHIEF COMPLAINT: Cholecystitis and cholelithiasis. HISTORY OF PRESENT ILLNESS: This lady is doing well and she has had no problems since surgery. PHYSICAL EXAMINATION: CHEST: Clear. CARDIAC: Exam is normal. IMPRESSION: 1. Acute gallbladder disease. 2. Recent gastric stapling. 3. Hyperthyroidism. PLAN: 1. Follow postoperatively. 2. Repeat T4. MMODL / IJN: [id number] /
[2024-05-15 08:56] LABS: BUN/Creat Ratio <8.75 Ratio (12.00-20.00); Blood Urea Nitrogen <3.5 mg/dL (9.0-27.0); Calcium 7.8 mg/dL (8.7-10.3); Carbon Dioxide 23.5 mmol/L (21.6-31.8); Chloride 108 mmol/L (96-109); Glucose 85 mg/dL (70-110); Potassium 3.8 mmol/L (3.5-5.5); Sodium 140 mmol/L (135-145)
[2024-05-15 13:11] VITALS: BMI 29.0
--- NOTE | 2024-05-15 13:20 | P.PN ---
Subjective Progress Note Date: 05/15/24 SURGICAL PROGRESS NOTE CHIEF COMPLAINT: Abdominal pain HISTORY OF PRESENT ILLNESS: Patient is postop day #3 status post laparoscopic cholecystectomy and lysis of adhesions. Patient is feeling better today. She did have flatus yesterday. She is tolerating diet. She has been up and ambulating. Her pain is controlled. She is afebrile. Potassium improved at 3.8 Wbc 6.2 hgb 10.3 PHYSICAL EXAM: VITAL SIGNS: Reviewed. GENERAL: Well-developed in no acute distress. ABDOMEN: Soft. Nondistended. Tenderness to palpation to the right upper quadrant NEUROLOGIC: Alert and oriented. Cranial nerves II through XII grossly intact. ASSESSMENT: 1. Acute cholecystitis 2. 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 Elevated LFTs due to symptomatic gallstones. Now improved 4. Hypokalemia resolved PLAN: -Patient can be discharged from surgical standpoint -RENA drain to be removed prior to discharge -Continue low-fat diet Physician Medical Administrator note has been reviewed by physician. Signing provider agrees with the documented findings, assessment, and plan of care. Objective - Vital Signs Vital signs: Vital Signs Temp 98.4 F 05/15/24 08:01 Pulse 68 05/15/24 08:01 Resp 17 05/15/24 08:01 BP 132/80 05/15/24 08:01 Pulse Ox 99 05/15/24 08:01 FiO2 Intake & Output 05/14/24 05/15/24 05/15/24 18:59 06:59 18:59 Intake Total 650 650 Balance 650 650 Intake: Intake, IV Titration 650 650 Amount Ampicillin-Sulbactam 1.5 50 50 gm In Sodium Chloride 0.9 % 50 ml @ 100 mls/hr IVPB Q8HR BARAK Rx#:[id number] Sodium Chloride 0.9% 1, 600 600 000 ml @ 75 mls/hr IV . [id number] BARAK Rx#:[id number] Other: Voiding Method Toilet # Voids 3 - Labs CBC & Chem 7: 05/15/24 04:04 05/15/24 04:41 Labs: Abnormal Lab Results - Last 24 Hours (Table) 05/15/24 Range/Units 04:41 BUN <3.5 L (9.0-27.0) mg/dL Creatinine 0.4 L (0.6-1.5) mg/dL BUN/Creatinine Ratio <8.75 L (12.00-20.00) Ratio Calcium 7.8 L (8.7-10.3) mg/dL
[2024-05-15 13:50] LABS: Anisocytosis Slight; Basophils % (A) 0 %; Eosinophils # (A) 0.1 k/uL (0-0.7); Eosinophils % (A) 2 %; HCT 33.7 % (34.0-46.0); HGB 10.3 gm/dL (11.4-16.0); Hypochromasia Marked; Lymphocytes # (A) 2.2 k/uL (1.0-4.8); Lymphocytes % (A) 36 %; MCH 25.4 pg (25.0-35.0); MCHC 30.7 g/dL (31.0-37.0); MCV 82.9 fL (80.0-100.0); Mean Platelet Volume 10.8; Monocytes # (A) 0.3 k/uL (0-1.0); Monocytes % (A) 5 %; Neutrophils # (A) 3.5 k/uL (1.3-7.7); Neutrophils % (A) 57 %; Platelet Count 194 k/uL (150-450); RBC 4.06 m/uL (3.80-5.40); RDW 17.5 % (11.5-15.5); WBC 6.2 k/uL (3.8-10.6)
[2024-05-15 14:10] VITALS: BP 106/62; PULSE 77; RESP 16; TEMP 98.5
--- NOTE | 2024-05-16 02:40 | PN ---
PROGRESS NOTE DATE OF SERVICE: 05/14/2024 CHIEF COMPLAINT: Status post cholecystectomy. HISTORY OF PRESENT ILLNESS: This lady is doing well. She has not had any nausea or vomiting. PHYSICAL EXAMINATION: VITAL SIGNS: Normal. CHEST: Clear. CARDIAC: Normal. IMPRESSION: 1. Status post cholecystectomy. 2. Hyperthyroidism. 3. Status post gastric stapling. PLAN: Increase activity and diet. MMODL / IJN: [id number] /
--- NOTE | 2024-05-16 02:55 | DS ---
DISCHARGE SUMMARY CHIEF COMPLAINT: Abdominal pain. HISTORY OF PRESENT ILLNESS AND PHYSICAL EXAMINATION: Details of this lady's history and physical can be found in the initial workup. LABORATORY STUDIES: While she is in the hospital, she had laboratory studies, details of which can be found in the laboratory section of her chart. COURSE IN THE HOSPITAL: After admission, she was placed on bedrest, started on the intravenous fluids and analgesics. She was found to have cholecystitis. She was seen by Surgery and taken for a laparoscopic cholecystectomy. Postoperatively, she did well with no significant problems. She was passing gas, urinating and eating, and it was felt she could be discharged on the . She will follow up with Surgery as well as my office. FINAL DIAGNOSES: 1. Acute cholecystitis. 2. Hypothyroidism. 3. Status post gastric sleeve for obesity. OPERATIONS: Cholecystectomy. CONSULTATIONS: General surgery. She is improved. DOMINIK / TAVO: [id number] /
--- NOTE | 2024-05-18 20:07 | CDI ---
Documentation Clarification Form Date: 05/18/2024 07:57:45 PM From: Eden Weldon Phone: Admit Date: 05/09/2024 08:52:00 PM Patient Name: Grisel Lomas Visit Number: [id number] Discharge Date: 05/15/2024 04:04:00 PM ATTENTION: The Clinical Documentation Specialists (CDI) and [facility] Coding Staff appreciate your assistance in clarifying documentation. Please respond to the clarification below the line at the bottom and electronically sign. The CDI & [facility] Coding staff will review the response and follow-up if needed. Please note: Queries are made part of the Legal Health Record. If you have any questions, please contact the author of this message via ITS. Doctor/Provider: Andrea De La Cruz Conflicting documentation has been found in the medical record. As attending physician, please provide clarification. Hyperthyroidism/hyperthyroid ED Note 05/09 Consult 05/10 and Progress Notes 05/11, 05/13 & 05/15 Hypothyroidism per DC Summary History/Risk Factors: 44yo F, HTN, thyroid disorder obesity sp stomach stapling, Calculus of gallbladder with cholecystitis, intra-abdominal adhesions Clinical Indicators: no home medications Treatment: monitored Please clarify which diagnosis is most appropriate: [ ] Hyperthyroidism/hyperthyroid [ ] Hypothyroidism [ ] Other (please specify) [ ] Unable to determine (Template Last Revised: August 2020) MTDD
--- NOTE | 2024-05-18 20:13 | CDI ---
Documentation Clarification Form Date: 05/18/2024 08:07:47 PM From: Eden Weldon Phone: Admit Date: 05/09/2024 08:52:00 PM Patient Name: Grisel Lomas Visit Number: [id number] Discharge Date: 05/15/2024 04:04:00 PM ATTENTION: The Clinical Documentation Specialists (CDI) and [facility] Coding Staff appreciate your assistance in clarifying documentation. Please respond to the clarification below the line at the bottom and electronically sign. The CDI & [facility] Coding staff will review the response and follow-up if needed. Please note: Queries are made part of the Legal Health Record. If you have any questions, please contact the author of this message via ITS. Doctor/Provider: Andrea De La Cruz The final diagnosis of the pathology report states chronic cholecystitis with cholelithiasisandcholesterolosis. Coding guidelines do not allow coding professionals to code based on pathology results; therefore, clarification is requested. History/risk factors: 44yo F, HTN, thyroid disorder obesity sp stomach stapling, calculus of gallbladder with cholecystitis, intra-abdominal adhesions Clinical Indicators: Biliarycolic, symptomaticgallstones. 6 x 2 x 1 cmcollapsed pink/traore gallbladder that has a 0.5 cm defect within the proximal body. The lumen contains a small amount of mucinous brown bile. The mucosa is traore/yellow and velvety. The wall is up to 0.5 cm thick and thecysticduct is patent. Separate within the container are two ovoid, finely bosselated, yellow/browncalculithat are each 0.5 cm in greatest dimension. Treatment: Laparoscopiccholecystectomy Please clarify if you agree with the pathology report: [ ] Chronic cholecystitis with cholelithiasisandcholesterolosis [ ] Acute and Chronic cholecystitis with cholelithiasisandcholesterolosis [ ] Other (please specify) [ ] Unable to determine (Template Last Revised: August 2020) MTDD
--- NOTE | 2024-05-20 01:08 | HP ---
HISTORY AND PHYSICAL CHIEF COMPLAINT: Abdominal pain. HISTORY OF PRESENT ILLNESS: This is another admission for this 44-year-old female. She recently underwent gastric stapling with complications, for which she was transferred to [facility] and treated for gastric leak. She went home and is doing well. She also has a history of hyperthyroidism. She started to develop an upper abdominal pain, came to emergency room where she was identified as having cholelithiasis. She was seen by Surgery and subsequently was taken for cholecystectomy. REVIEW OF SYSTEMS: She has had pain, but no significant chills or vomiting. Past medical history, family history, personal and social histories are all otherwise unremarkable and noncontributory and unchanged. PHYSICAL EXAMINATION: VITAL SIGNS: Normal. HEAD, EARS, EYES, NOSE, MOUTH, AND THROAT: Normal. CHEST: Clear. CARDIAC: Normal. ABDOMEN: Soft and tender over the epigastrium without any masses. Bowel sounds present. EXTREMITIES: Normal. NEUROLOGICAL: She is intact. IMPRESSION: 1. Cholecystitis and cholelithiasis. 2. Recent gastric stapling. 3. Hyperthyroidism. PLAN: 1. Bedrest. 2. IV fluids. 3. Analgesics. 4. Surgery consult. MMODL / IJN: [id number] /
--- NOTE | 2024-05-23 05:50 | MISC ---
MISCELLANOUS REPORT Hyperthyroid. Acute cholecystitis. MMODL / IJN: [id number] /
== END 2024-05-15 16:04 | disposition home or self-care (01) | DRG 263 ==
LOC: EC 16:44 → 4SSUR 20:52
PROVIDERS: ADMIT Family Medicine; ATTEND Family Medicine
PROC: 0FT44ZZ Resection of Gallbladder, Percutaneous Endoscopic Approach (ICD-10-PCS; principal; 2024-05-12 08:00)
DX: K80.00 Calculus of gallbladder with acute cholecystitis without obstruction (principal); K85.90 Acute pancreatitis without necrosis or infection, unspecified; I10 Essential (primary) hypertension; E03.9 Hypothyroidism, unspecified; E66.9 Obesity, unspecified; E05.90 Thyrotoxicosis, unspecified without thyrotoxic crisis or storm; K66.0 Peritoneal adhesions (postprocedural) (postinfection); E87.6 Hypokalemia; Z68.29 Body mass index [BMI] 29.0-29.9, adult; Z87.891 Personal history of nicotine dependence; Z86.32 Personal history of gestational diabetes; Z79.899 Other long term (current) drug therapy; Z98.84 Bariatric surgery status
CPT/HCPCS: 36415; 74177; 76705; 80048; 80053; 81001; 81025; 82150; 83605; 83690; 83735; 84439; 84484; 85025; 85610; 85730; 88304; 93005; 96361; 96365; 96366; 96375; 96376; 99285

== ENCOUNTER → 2024-05-19 | Outpatient (CLI) | payer OTHER ==
[2024-05-19 13:44] VITALS: BP 131/80; PULSE 105; RESP 16; TEMP 98.6; BMI 29.6
--- NOTE | 2024-05-19 14:24 | P.BASOAP ---
Subjective Progress Note Date: 05/19/24 Principal diagnosis: Postop Patient returns after laparoscopic cholecystectomy last week. Still having soreness at the epigastric extraction site. Some constipation. Tolerating diet. No fevers. No nausea or vomiting. Passing flatus. No bloating. Heart rate initially 10 5 repeat 89. Objective - Vital Signs Vital signs: Vital Signs Temp 98.6 F 05/19/24 13:41 Pulse 105 H 05/19/24 13:41 Resp 16 05/19/24 13:41 BP 131/80 05/19/24 13:41 Pulse Ox FiO2 Intake & Output 05/18/24 05/19/24 05/19/24 18:59 06:59 18:59 Weight 73.482 kg - Exam Abdomen: Soft, nondistended, mild tenderness at extraction site, incisions clean and dry Assessment/Plan (1) Gallstones Narrative/Plan: 44-year-old female doing well after recent admission for cholecystitis. Suspect choledocholithiasis as reason for presentation. Surgery complicated by significant abdominal adhesions. Drain was removed on Saturday. Doing well at this time. Recheck 2 weeks from now. Plan repeat labs 1 month. Plan: Date: 05/19/24 Initial Weight: 92.986 kg Initial BMI: 37.5 Current Weight: 73.482 kg Current BMI: 29.6 Type of Surgery: Vertical Sleeve Gastrectomy Total Volume in Band: Previous Volume: Volume Removed: Volume Added: Band Size:
== END ==
LOC: BARWHC3 13:23
PROVIDERS: ATTEND Surgery
DX: E66.01 Morbid (severe) obesity due to excess calories (principal); Z68.29 Body mass index [BMI] 29.0-29.9, adult
CPT/HCPCS: 99211

== ENCOUNTER → 2024-06-15 | Outpatient (CLI) | payer OTHER ==
[2024-06-15 22:29] LABS: ALT 10 U/L (8-44); AST 13 U/L (13-35); Albumin/Globulin Ratio 1.48 Ratio (1.60-3.17); Alkaline Phosphatase 80 U/L (41-126); BUN/Creat Ratio 7.86 Ratio (12.00-20.00); Blood Urea Nitrogen 5.5 mg/dL (9.0-27.0); Calcium 8.9 mg/dL (8.7-10.3); Carbon Dioxide 24.7 mmol/L (21.6-31.8); Chloride 105 mmol/L (96-109); Globulin 2.7 g/dL (1.6-3.3); Glucose 90 mg/dL (70-110); Iron 28 UG/DL (50-170); Potassium 4.4 mmol/L (3.5-5.5); Sodium 141 mmol/L (135-145); Total Bilirubin 0.3 mg/dL (0.3-1.2); Total Protein 6.7 g/dL (6.2-8.2)
[2024-06-15 23:17] LABS: HCT 39.2 % (37.2-46.3); HGB 11.8 g/dL (12.0-15.0); MCH 24.5 pg (27.0-32.0); MCHC 30.1 g/dL (32.0-37.0); MCV 81.5 FL (80.0-97.0); Mean Platelet Volume 11.7 FL (9.5-12.2); NRBC Per 100 WBC 0 X 10*3/uL (0.00-0.01); Platelet Count 218 X 10*3/uL (140-440); RBC 4.81 X 10*6/uL (4.10-5.20); RDW 18.7 % (11.5-14.5); WBC 6.61 X 10*3/uL (4.50-10.00)
== END | disposition home or self-care (01) ==
LOC: LABWHC1 16:33
PROVIDERS: ATTEND Surgery
DX: E55.9 Vitamin D deficiency, unspecified (principal); E66.01 Morbid (severe) obesity due to excess calories; K90.9 Intestinal malabsorption, unspecified
CPT/HCPCS: 36415; 80053; 82306; 82607; 82746; 83540; 84425; 85027

== ENCOUNTER → 2024-06-16 | Outpatient (CLI) | payer OTHER ==
--- NOTE | 2024-06-16 13:51 | P.BASOAP ---
Subjective Progress Note Date: 06/16/24 Principal diagnosis: Morbid obesity Patient returns for recheck. Underwent cholecystectomy last month. No residual pains. Tolerating diet. No nausea or vomiting. No GERD. Still eating less. Has lost 5 pounds since her last visit. Her recent lab work was checked yesterday. Iron is low at 28 was 31 previously. Vitamin D is 10.9 was 10.1 previously. Hemoglobin is improved and almost back to normal range. Patient says she has chronically had low iron and low vitamin D. Has had some menstrual flow that is unpredictable and is discussing that with her maintenance scheduler. Patient states she does not do well with vitamin D or iron supplementation in the past with GI upset. Not taking any medications other than her normal vitamins. Objective - Exam Abdomen: Soft, nontender, nondistended, incisions clean and dry Assessment/Plan (1) Severe obesity (BMI 35.0-35.9 with comorbidity) Narrative/Plan: Patient doing well at this time. Continue dietary and exercise regimen. Return to work with normal restriction with no restrictions next week. Follow-up 6 weeks. Plan repeat labs in September. Plan: Date: Initial Weight: 92.986 kg Initial BMI: Current Weight: Current BMI: Type of Surgery: Total Volume in Band: Previous Volume: Volume Removed: Volume Added: Band Size:
[2024-06-16 14:04] VITALS: BP 138/82; PULSE 63; TEMP 97.8; BMI 28.7
== END ==
LOC: BARWHC3 13:21
PROVIDERS: ATTEND Surgery
DX: E66.01 Morbid (severe) obesity due to excess calories (principal); Z68.35 Body mass index [BMI] 35.0-35.9, adult
CPT/HCPCS: 99211

== ENCOUNTER → 2024-08-04 | Outpatient (CLI) | payer OTHER ==
[2024-08-04 14:54] VITALS: BP 143/73; PULSE 59; RESP 16; TEMP 98.2; BMI 27.6
--- NOTE | 2024-08-04 15:52 | P.BASOAP ---
Subjective Progress Note Date: 08/04/24 Principal diagnosis: Morbid obesity Patient presents for follow-up. Doing well since last visit. Has lost 5 more pounds. BMI 27.6. Due for lab work. No heartburn. He has rare episodes of right sided pain after recent cholecystectomy. Objective - Vital Signs Vital signs: Vital Signs Temp 98.2 F 08/04/24 14:52 Pulse 59 L 08/04/24 14:52 Resp 16 08/04/24 14:52 BP 143/73 08/04/24 14:52 Pulse Ox FiO2 Intake & Output 08/03/24 08/04/24 08/04/24 18:59 06:59 18:59 Weight 68.492 kg - Exam Abdomen: Soft, nontender, nondistended Assessment/Plan (1) Severe obesity (BMI 35.0-35.9 with comorbidity) Narrative/Plan: Patient doing well after previous sleeve gastrectomy and subsequent cholecystectomy. Continue dietary and exercise regimen. Plan 6-month labs next visit. Plan: Date: 08/04/24 Initial Weight: 92.986 kg Initial BMI: 37.5 Current Weight: 68.492 kg Current BMI: 27.6 Type of Surgery: Vertical Sleeve Gastrectomy Total Volume in Band: Previous Volume: Volume Removed: Volume Added: Band Size:
== END ==
LOC: BARWHC3 14:40
PROVIDERS: ATTEND Surgery
DX: E66.01 Morbid (severe) obesity due to excess calories (principal); Z68.27 Body mass index [BMI] 27.0-27.9, adult
CPT/HCPCS: 99211

== ENCOUNTER → 2024-09-29 | Outpatient (CLI) | payer OTHER ==
[2024-09-29 13:11] VITALS: BP 125/79; PULSE 76; RESP 16; TEMP 98.7; BMI 26.2
--- NOTE | 2024-09-29 16:16 | P.BASOAP ---
Subjective Progress Note Date: 09/29/24 Principal diagnosis: Morbid obesity Patient returns for recheck. Doing well since last visit. Think she is eating a bit more. Still eating less than half of what she ate before. Weight went from 151-143. BMI 26.2. No GERD symptoms. Still with mild occasional right upper quadrant discomforts. She is due for lab work. Objective - Vital Signs Vital signs: Vital Signs Temp 98.7 F 09/29/24 13:08 Pulse 76 09/29/24 13:08 Resp 16 09/29/24 13:08 BP 125/79 09/29/24 13:08 Pulse Ox FiO2 Intake & Output 09/28/24 09/29/24 09/29/24 18:59 06:59 18:59 Weight 64.864 kg - Exam Abdomen: Soft, nontender, nondistended Assessment/Plan (1) Severe obesity (BMI 35.0-35.9 with comorbidity) Narrative/Plan: Patient doing well at this time. BMI down to normal range. Continue dietary and exercise regimen.'s check 6-month labs. Follow-up 6 to 8 weeks. Plan: Date: 09/29/24 Initial Weight: 92.986 kg Initial BMI: 37.5 Current Weight: 64.864 kg Current BMI: 26.2 Type of Surgery: Vertical Sleeve Gastrectomy Total Volume in Band: Previous Volume: Volume Removed: Volume Added: Band Size:
== END ==
LOC: BARWHC3 12:56
PROVIDERS: ATTEND Surgery
DX: E66.01 Morbid (severe) obesity due to excess calories (principal); Z68.26 Body mass index [BMI] 26.0-26.9, adult
CPT/HCPCS: 99211

== ENCOUNTER → 2024-12-01 | Outpatient (CLI) | payer OTHER ==
[2024-12-01 13:32] VITALS: BP 132/83; PULSE 87; RESP 16; TEMP 98.5; BMI 24.8
--- NOTE | 2024-12-01 16:23 | P.BASOAP ---
Subjective Progress Note Date: 12/01/24 Principal diagnosis: Morbid obesity Patient returns for recheck. Doing well with her weight loss. Down to 136. BMI 24.8. Denies nausea vomiting. Still rare episodes of right upper quadrant discomfort. Never had her lab work drawn and is overdue for that. Objective - Vital Signs Vital signs: Vital Signs Temp 98.5 F 12/01/24 13:30 Pulse 87 12/01/24 13:30 Resp 16 12/01/24 13:30 BP 132/83 12/01/24 13:30 Pulse Ox FiO2 Intake & Output 11/30/24 12/01/24 12/01/24 18:59 06:59 18:59 Weight 61.689 kg - Exam Abdomen: Soft, nontender, nondistended Assessment/Plan (1) Severe obesity (BMI 35.0-35.9 with comorbidity) Narrative/Plan: Patient doing well after prior sleeve gastrectomy. Continue dietary and exercise regimen. Check routine labs. Follow-up 4 to 6 weeks. Plan: Date: 12/01/24 Initial Weight: 92.986 kg Initial BMI: 37.5 Current Weight: 61.689 kg Current BMI: 24.8 Type of Surgery: Vertical Sleeve Gastrectomy Total Volume in Band: Previous Volume: Volume Removed: Volume Added: Band Size:
== END ==
LOC: BARWHC3 13:03
PROVIDERS: ATTEND Surgery
DX: E66.01 Morbid (severe) obesity due to excess calories (principal); Z68.24 Body mass index [BMI] 24.0-24.9, adult
CPT/HCPCS: 99211

== ENCOUNTER 2024-12-05 14:41 | Emergency (ER) | payer OTHER ==
[2024-12-05 14:53] VITALS: RESP 18; TEMP 98.5
--- NOTE | 2024-12-05 15:20 | ED ---
General Adult HPI - General Chief complaint: Abdominal Pain Stated complaint: Abd Pain Time Seen by Provider: 12/05/24 14:59 Source: patient, EMS, RN notes reviewed Mode of arrival: EMS Limitations: no limitations - History of Present Illness Initial comments: 44-year-old female presents to the emergency department for evaluation of left- sided abdominal/pelvic pain. She notes that this started last night. She reports it is a stabbing pain. Notes that it is worsened since last night. Endorses nausea and vomiting. Denies any recent fever, chills. Denies any urinary symptoms. She reports normal bowel movements. Prior abdominal surgeries include cholecystectomy - Related Data Home Medications Medication Instructions Recorded Confirmed Pantoprazole [Protonix] 40 mg PO DAILY 05/10/24 12/04/24 predniSONE [Deltasone] 40 mg PO DAILY 05/10/24 12/04/24 Allergies Allergy/AdvReac Type Severity Reaction Status Date / Time NSAIDS (Non-Steroidal AdvReac Unknown Verified 12/05/24 15:39 Anti-Inflamma Review of Systems ROS Statement: Those systems with pertinent positive or pertinent negative responses have been documented in the HPI. ROS Other: All systems not noted in ROS Statement are negative. Past Medical History Past Medical History: Hypertension, Pneumonia, Thyroid Disorder Additional Past Medical History / Comment(s): hyperthyroid, gestational diabetes History of Any Multi-Drug Resistant Organisms: None Reported Past Surgical History: Bariatric Surgery, Cholecystectomy, Tubal Ligation, Uterine Ablation Additional Past Surgical History / Comment(s): Sleeve Gastrectomy 01-27-24 Gallbladder Out Additional Past Anesthesia/Blood Transfusion Reaction / Comment(s): pt. reports dizziness and "hard to wake up" after tubal Past Psychological History: No Psychological Hx Reported Smoking Status: Former smoker Past Alcohol Use History: Occasional Past Drug Use History: None Reported - Past Family History Mother Family Medical History: Cancer Additional Family Medical History / Comment(s): breast General Exam Limitations: no limitations General appearance: alert, in no apparent distress Head exam: Present: atraumatic, normocephalic, normal inspection Eye exam: Present: normal appearance, PERRL, EOMI. Absent: scleral icterus, conjunctival injection, periorbital swelling ENT exam: Present: normal exam, mucous membranes moist Neck exam: Present: normal inspection. Absent: tenderness, meningismus, lymphadenopathy Respiratory exam: Present: normal lung sounds bilaterally. Absent: respiratory distress, wheezes, rales, rhonchi, stridor Cardiovascular Exam: Present: regular rate, normal rhythm, normal heart sounds. Absent: systolic murmur, diastolic murmur, rubs, gallop, clicks GI/Abdominal exam: Present: soft, tenderness (LLQ ), normal bowel sounds. Absent: distended, guarding, rebound, rigid Extremities exam: Present: normal inspection, full ROM, normal capillary refill. Absent: tenderness, pedal edema, joint swelling, calf tenderness Neurological exam: Present: alert, oriented X3 Psychiatric exam: Present: normal affect, normal mood Skin exam: Present: warm, dry, intact, normal color. Absent: rash Course Vital Signs 12/05/24 12/05/24 14:44 19:02 Temperature 98.5 F Pulse Rate 80 82 Respiratory 18 18 Rate Blood Pressure 155/78 117/65 O2 Sat by Pulse 99 96 Oximetry Medical Decision Making - Medical Decision Making Was pt. sent in by a medical professional or institution (, PA, DIRECTOR IMMUNOLOGY, urgent care, hospital, or detention...) When possible be specific @ -No Did you speak to anyone other than the patient for history (EMS, parent, family, police, friend...)? What history was obtained from this source @ -No Did you review nursing and triage notes (agree or disagree)? Why? @ -I reviewed and agree with nursing and triage notes Were old charts reviewed (outside hosp., previous admission, EMS record, old EKG, old radiological studies, urgent care reports/EKG's, detention records)? Report findings @ -No old charts were reviewed Differential Diagnosis (chest pain, altered mental status, abdominal pain women, abdominal pain men, vaginal bleeding, weakness, fever, dyspnea, syncope, headache, dizziness, GI bleed, back pain, seizure, CVA, palpatations, mental health, musculoskeletal)? @ -Differential Abdominal Pain Women: Appendicitis, Cholecystitis, diverticulosis, ischemic bowel, pancreatitis, hepatitis, UTI, gastroenteritis, AAA, incarcerated hernia, bowel obstruction, constipation, inflammatory bowel, hepatitis, peptic ulcer disease, splenic infarction, perforated viscus, vulvitis, ovarian torsion, PID, kidney stone, placenta abruption, this is not meant to be an all-inclusive list EKG interpreted by me (3pts min.). @ -none X-rays interpreted by me (1pt min.). @ -None done CT interpreted by me (1pt min.). @ -CT of the abdomen pelvis revealNo evidence of acute abdominal process or obstructive uropathy, right sided ovarian cyst measuring 3.4 cm, fat-containing ventral wall hernia and periumbilical hernia. U/S interpreted by me (1pt. min.). @ -Transvaginal ultrasoundReveals no acute process, post ablation endometrium, complex cystic area for the midline could likely be an ovarian cyst What testing was considered but not performed or refused? (CT, X-rays, U/S, labs)? Why? @ -None What meds were considered but not given or refused? Why? @ -None Did you discuss the management of the patient with other professionals (professionals i.e. , PA, DIRECTOR IMMUNOLOGY, lab, RT, psych nurse, social service director, data abstractor, teacher, bank officer, case coordinator)? Give summary @ -No Was smoking cessation discussed for >3mins.? @ -No Was critical care preformed (if so, how long)? @ -No Were there social determinants of health that impacted care today? How? (Homelessness, low income, unemployed, alcoholism, drug addiction, transportation, low edu. Level, literacy, decrease access to med. care, senior living, rehab)? @ -No Was there de-escalation of care discussed even if they declined (Discuss DNR or withdrawal of care, Hospice)? DNR status @ -No What co-morbidities impacted this encounter? (DM, HTN, Smoking, COPD, CAD, Cancer, CVA, ARF, Chemo, Hep., AIDS, mental health diagnosis, sleep apnea, morbid obesity)? @ -None Was patient admitted / discharged? Hospital course, mention meds given and route, prescriptions, significant lab abnormalities, going to OR and other pertinent info. @ -Discharge.Patient presented emergency department for evaluation of abdominal pain. Laboratory studies revealed no significant leukocytosis, hemoglobin 12.7; CMP is nonactionable. UA reveals no evidence of infectious process. Negative urine hCG. CT of the abdomen pelvis reveals no evidence of acute process, ovarian cyst present on the right side. Patient provided IV fluid hydration in the emergency department. Patient also provided medication for pain control in the emergency department. She will be discharged home. She is understanding agreeable with plan. Patient stable at time of discharge. Case discussed with Dr. Giang. Undiagnosed new problem with uncertain prognosis? @ -No Drug Therapy requiring intensive monitoring for toxicity (Heparin, Nitro, Insulin, Cardizem)? @ -No Were any procedures done? @ -No Diagnosis/symptom? @ -Abdominal pain, ovarian cyst Acute, or Chronic, or Acute on Chronic? @ -Acute Uncomplicated (without systemic symptoms) or Complicated (systemic symptoms)? @ -Uncomplicated Side effects of treatment? @ -No Exacerbation, Progression, or Severe Exacerbation? @ -No Poses a threat to life or bodily function? How? (Chest pain, [place], [place], pneumonia, PE, COPD, DKA, ARF, appy, cholecystitis, CVA, Diverticulitis, Homicidal, Suicidal, threat to staff... and all critical care pts) @ -No - Lab Data Result diagrams: 12/05/24 15:35 12/05/24 15:35 Lab Results 12/05/24 12/05/24 12/05/24 Range/Units 15:35 15:35 15:35 WBC 8.89 (4.50-10.00) 10*3/uL RBC 4.90 (4.10-5.20) 10*6/uL Hgb 12.7 (12.0-15.0) g/dL Hct 40.3 (37.2-46.3) % MCV 82.2 (80.0-97.0) fL MCH 25.9 L (27.0-32.0) pg MCHC 31.5 L (32.0-37.0) g/dL Plt Count 260 (140-440) 10*3/uL MPV 10.9 (9.5-12.2) fL Immature Gran % (Auto) 0.2 % Neutrophils % 87.0 % Lymphocytes % 8.9 % Monocytes % 3.7 % Eosinophils % 0.1 % Basophils % 0.1 % Immature Gran # 0.02 (0.00-0.04) 10*3/uL Neutrophils # 7.73 H (1.80-7.70) 10*3/uL Lymphocytes # 0.79 L (0.90-5.00) 10*3/uL Monocytes # 0.33 (0.20-1.00) 10*3/uL Eosinophils # 0.01 L (0.04-0.35) 10*3/uL Basophils # 0.01 (0.00-0.10) 10*3/uL Sodium 140 (137-145) mmol/L Potassium 3.9 (3.5-5.1) mmol/L Chloride 109 H (98-107) mmol/L Carbon Dioxide 18 L (22-30) mmol/L Anion Gap 13 mmol/L BUN 7 (7-17) mg/dL Creatinine 0.45 L (0.52-1.04) mg/dL Est GFR (CKD-EPI)AfAm >90 (>60 ml/min/1.73 sqM) Est GFR (CKD-EPI)NonAf >90 (>60 ml/min/1.73 sqM) Glucose 94 (74-99) mg/dL Plasma Lactic Acid [place] 0.8 (0.7-2.0) mmol/L Calcium 9.6 (8.4-10.2) mg/dL Total Bilirubin 0.7 (0.2-1.3) mg/dL AST 19 (14-36) U/L ALT 17 (4-34) U/L Alkaline Phosphatase 88 (38-126) U/L Total Protein 7.7 (6.3-8.2) g/dL Albumin 4.6 (3.5-5.0) g/dL Amylase 59 (30-110) U/L Lipase 162 (23-300) U/L Urine Color Urine Appearance (Clear) Urine pH (5.0-8.0) Ur Specific [place] (1.001-1.035) Urine Protein (Negative) Urine Glucose (UA) (Negative) Urine Ketones (Negative) Urine Blood (Negative) Urine Nitrite (Negative) Urine Bilirubin (Negative) Urine Urobilinogen (<2.0) mg/dL Ur Leukocyte Esterase (Negative) Urine HCG, Qual (Not Detectd) 12/05/24 12/05/24 Range/Units 17:07 17:07 WBC (4.50-10.00) 10*3/uL RBC (4.10-5.20) 10*6/uL Hgb (12.0-15.0) g/dL Hct (37.2-46.3) % MCV (80.0-97.0) fL MCH (27.0-32.0) pg MCHC (32.0-37.0) g/dL Plt Count (140-440) 10*3/uL MPV (9.5-12.2) fL Immature Gran % (Auto) % Neutrophils % % Lymphocytes % % Monocytes % % Eosinophils % % Basophils % % Immature Gran # (0.00-0.04) 10*3/uL Neutrophils # (1.80-7.70) 10*3/uL Lymphocytes # (0.90-5.00) 10*3/uL Monocytes # (0.20-1.00) 10*3/uL Eosinophils # (0.04-0.35) 10*3/uL Basophils # (0.00-0.10) 10*3/uL Sodium (137-145) mmol/L Potassium (3.5-5.1) mmol/L Chloride (98-107) mmol/L Carbon Dioxide (22-30) mmol/L Anion Gap mmol/L BUN (7-17) mg/dL Creatinine (0.52-1.04) mg/dL Est GFR (CKD-EPI)AfAm (>60 ml/min/1.73 sqM) Est GFR (CKD-EPI)NonAf (>60 ml/min/1.73 sqM) Glucose (74-99) mg/dL Plasma Lactic Acid [place] (0.7-2.0) mmol/L Calcium (8.4-10.2) mg/dL Total Bilirubin (0.2-1.3) mg/dL AST (14-36) U/L ALT (4-34) U/L Alkaline Phosphatase (38-126) U/L Total Protein (6.3-8.2) g/dL Albumin (3.5-5.0) g/dL Amylase (30-110) U/L Lipase (23-300) U/L Urine Color Colorless Urine Appearance Clear (Clear) Urine pH 5.5 (5.0-8.0) Ur Specific [place] 1.027 (1.001-1.035) Urine Protein Trace H (Negative) Urine Glucose (UA) Negative (Negative) Urine Ketones 4+ H (Negative) Urine Blood Negative (Negative) Urine Nitrite Negative (Negative) Urine Bilirubin Negative (Negative) Urine Urobilinogen <2.0 (<2.0) mg/dL Ur Leukocyte Esterase Negative (Negative) Urine HCG, Qual Not Detected (Not Detectd) Disposition Clinical Impression: Abdominal pain Disposition: HOME SELF-CARE Condition: Stable Instructions (If sedation given, give patient instructions): Abdominal Pain (ED) Additional Instructions: Please follow-up your doctor. Return to the emergency department for new or worsening symptoms. Is patient prescribed a controlled substance at d/c from ED?: No Referrals: Andrea De La Cruz MD [Primary Care Provider] - 1-2 days
[2024-12-05] MEDS: SODIUM CHLORIDE 0.9% 1,000 ML IV ONE (15:43)
[2024-12-05] MEDS: HYDROmorphone 1 MG/ML 1 ML SYRINGE IVP STA (15:43)
[2024-12-05] MEDS: ONDANSETRON 4 MG/2 ML VIAL IVP STA ×2 (15:43→18:53)
[2024-12-05] MEDS: KETOROLAC 15 MG/ML 1 ML VIAL IVP STA (15:43)
[2024-12-05 15:54] LABS: Basophils # (A) 0.01 10*3/uL (0.00-0.10); Basophils % (A) 0.1 %; Eosinophils # (A) 0.01 10*3/uL (0.04-0.35); Eosinophils % (A) 0.1 %; HCT 40.3 % (37.2-46.3); HGB 12.7 g/dL (12.0-15.0); Lymphocytes # (A) 0.79 10*3/uL (0.90-5.00); Lymphocytes % (A) 8.9 %; MCH 25.9 pg (27.0-32.0); MCHC 31.5 g/dL (32.0-37.0); MCV 82.2 fL (80.0-97.0); Mean Platelet Volume 10.9 fL (9.5-12.2); Monocytes # (A) 0.33 10*3/uL (0.20-1.00); Monocytes % (A) 3.7 %; Neutrophils # (A) 7.73 10*3/uL (1.80-7.70); Platelet Count 260 10*3/uL (140-440); RDW 13.5 % (11.5-14.5); WBC 8.89 10*3/uL (4.50-10.00)
[2024-12-05 16:07] LABS: ALT 17 U/L (4-34); AST 19 U/L (14-36); African American GFR (CKD) >90 (>60 ml/min/1.73 sqM); Albumin 4.6 g/dL (3.5-5.0); Alkaline Phosphatase 88 U/L (38-126); Amylase 59 U/L (30-110); Anion Gap 13 mmol/L; Blood Urea Nitrogen 7 mg/dL (7-17); Calcium 9.6 mg/dL (8.4-10.2); Carbon Dioxide 18 mmol/L (22-30); Chloride 109 mmol/L (98-107); Glucose 94 mg/dL (74-99); Lipase 162 U/L (23-300); Non-African American GFR(CKD) >90 (>60 ml/min/1.73 sqM); Potassium 3.9 mmol/L (3.5-5.1); Sodium 140 mmol/L (137-145); Total Bilirubin 0.7 mg/dL (0.2-1.3); Total Protein 7.7 g/dL (6.3-8.2)
--- NOTE | 2024-12-05 16:39 | US ---
EXAMINATION TYPE: US transvaginal DATE OF EXAM: 12/05/2024 COMPARISON: CT CLINICAL INDICATION: Female, 44 years old with history of lt pelvic pain; left sided pelvic pain, h/o ablation - no spotting or bleeding since TECHNIQUE: TV Transvaginal sonographic images FINDINGS: Date of LMP: ablation, lump unknown EXAM MEASUREMENTS: Uterus: 7.9 x 5.5 x 4.4 cm Endometrial Stripe: 1.2 cm Right Ovary: 5.3 x 4.8 x 3.3 cm Left Ovary: 2.6 x 2.9 x 2.2 cm 1. Uterus: Anteverted 1.7 x 2.1 x 1.9cm 2. Endometrium: wnl for ablation 3. Right Ovary: 3.8 x 4.3 x 2.2cm complex cystic area, ovary sits midline under uterus, not within r ight adnexa 4. Left Ovary: 1.9 x 2.8 x 1.2cm probable involuting cystic area Spectral, color and waveform doppler imaging shows good arterial and venous flow within the ovaries ; there is no evidence for ovarian torsion. 5. Bilateral Adnexa: wnl 6. Posterior cul-de-sac: wnl IMPRESSION: 1. No acute processes definitively visualized. 2. Post ablation endometrium. 3. Complex cystic area sitting more towards midline. Etiology uncertain. This could possibly be a an d ovarian cyst. Consider further evaluation with MRI pelvis with IV contrast. [facility], , 12/05/2024 4:37 PM
[2024-12-05 17:23] LABS: Appearance,Urine Clear (Clear); Bilirubin,Urine Negative (Negative); Blood,Urine Negative (Negative); Color,Urine Colorless; Glucose,Urine (UA) Negative (Negative); Ketones,Urine 4+ (Negative); Leukocyte Esterase,Urine Negative (Negative); Nitrite,Urine Negative (Negative); PH, Urine 5.5 (5.0-8.0); Protein,Urine Trace (Negative); Specific Gravity,Urine 1.027 (1.001-1.035); Urobilinogen,Urine <2.0 mg/dL (<2.0)
--- NOTE | 2024-12-05 18:03 | CT ---
EXAMINATION TYPE: CT abdomen pelvis w con DATE OF EXAM: 12/05/2024 5:55 PM COMPARISON: 05/10/2024 CLINICAL INDICATION: Female, 44 years old with history of LLQ pain; llq pain TECHNIQUE: Axial CT abdomen pelvis w con;Sagittal and coronal reformats were created on a separate w orkstation. Contrast used: mL of Isovue 300 with IV Contrast, (none if empty) Oral contrast used: without Oral Contrast (none if empty) CT DLP: 598.3 mGycm, Automated exposure control for dose reduction was used. FINDINGS: LOWER CHEST: Unremarkable ABDOMEN LIVER: Small hypodense lesion in the right hepatic lobe which is too small accurately characterize. GALLBLADDER AND BILE DUCTS: The gallbladder is surgically absent. PANCREAS: Unremarkable. SPLEEN: Unremarkable. ADRENAL GLANDS: Unremarkable. KIDNEYS AND URETERS: No evidence of hydronephrosis or renal calculus. The ureters are unremarkable. PELVIS BLADDER: No evidence for wall thickening or mass given limitations of exam. REPRODUCTIVE: Uterus unremarkable. Ligament changes of the ovaries with largest left ovarian dominant follicle measuring 2.9 cm. ABDOMEN & PELVIS STOMACH AND BOWEL: Previously gastrectomy. No evidence of bowel obstruction. Appendix is normal. PERITONEUM/RETROPERITONEUM: No evidence of pneumoperitoneum or free fluid. VASCULATURE: No evidence of aortic aneurysm. MUSCULOSKELETAL: No acute osseous abnormalities LYMPH NODES: No gross evidence for lymphadenopathy. SOFT TISSUE/ABDOMINAL WALL: Fat containing supraumbilical and periumbilical hernias. IMPRESSION: 1. No evidence for acute abdominal process or evidence for obstructive uropathy or renal calculus. T he appendix is normal. 2. Right ovarian cyst measuring up to 3.4 cm new from prior. 3. Fat-containing ventral wall hernia and periumbilical hernia. [facility], , 12/05/2024 6:01 PM
[2024-12-05] MEDS: HYDROmorphone 0.5 MG/0.5 ML SYRINGE IVP STA (18:53)
[2024-12-05] MEDS: ACET/COD 300 MG/30 MG STARTER PACK 6 TAB BTL PO STA (18:53)
[2024-12-05 19:03] VITALS: BP 117/65; PULSE 82
== END 2024-12-05 19:30 | disposition home or self-care (01) ==
LOC: EC 14:41
DX: N83.201 Unspecified ovarian cyst, right side (principal); Z87.891 Personal history of nicotine dependence; Z88.6 Allergy status to analgesic agent
CPT/HCPCS: 36415; 80053; 82150; 83605; 83690; 85025; 81003; 81025; 93975; 76830; 74177; 99284; 96374; 96375; 96376 ×2; 96361; J2405; J1171 ×2; Q9967